=== PATIENT | female | born 1940 | race Caucasian/White ===

== ENCOUNTER 2017-08-11 15:42 | Inpatient (IN) | payer MEDICARE, MEDICAID ==
[2017-08-11 16:26] VITALS: BP 127/85
[2017-08-11] MEDS ORDERED: Magnesium Hydroxide (MOM) 30 mL UDC PO PRN (16:35)
[2017-08-11] MEDS ORDERED: Maalox 30 mL Cup PO PRN (16:35)
[2017-08-12 06:22] LABS: ALB/GLOB RATIO 1.3 (1.0-1.8); ALBUMIN 3.9 gm/dL (3.7-5.3); ALKALINE PHOSPHATASE 50 U/L (34-104); ANION GAP 11.9 (7.0-16.0); BILIRUBIN,TOTAL 0.4 mg/dL (0.3-1.0); BUN - UREA NITROGEN 16 mg/dL (7-25); CARBON DIOXIDE 25.4 mEq/L (21.0-31.0); CHLORIDE 104 mEq/L (98-107); CREATININE - SERUM 0.4 mg/dL (0.6-1.2); GLUCOSE 114 mg/dL (70-105); POTASSIUM SERUM 3.3 mEq/L (3.5-5.1); SGOT 24 U/L (13-39); SGPT/ALT 19 U/L (7-52); SODIUM SERUM 138 mEq/L (136-145)
[2017-08-12 06:24] LABS: % BASOPHILS 0.6 % (0.0-2.0); % EOSINOPHILS 1.3 % (0.0-5.0); % LYMPHOCYTES 18.4 % (20.0-50.0); % MONOCYTES 9.2 % (2.0-10.0); % NEUTROPHILS 70.5 % (40.0-80.0); BASOPHILE ABSOLUTE 0.1 Th/cumm (0-0.2); EOSINOPHILE ABSOLUTE 0.1 Th/cmm (0.1-0.4); HEMATOCRIT 37.3 % (41.0-60); HEMOGLOBIN 12.8 gm/dL (12-16); LYMPHOCYTE ABSOLUTE 1.6 Th/cmm (1.5-3.0); MEAN CELL VOLUME 87.4 fl (81-100); MEAN CORPUSCULAR HGB CONC 34.3 pg (28.0-36.0); MEAN PLATELET VOLUME 8.7 fl; MONOCYTE ABSOLUTE 0.8 Th/cmm (0.3-1.0); NEUTROPHILE ABSOLUTE 5.9 Th/cmm (1.8-8.0); PLATELET COUNT 280 Th/cmm (150-400); RED BLOOD COUNT 4.27 Mil/cmm (3.80-5.20); RED CELL DISTRIBUTION WIDTH 13.9 % (11.5-20.0); WHITE BLOOD COUNT 8.5 Th/cmm (4.8-10.8)
--- NOTE | 2017-08-12 08:47 | Diagnostic Imaging Report ---
Portable chest x-ray HISTORY: Cough Heart size is normal. After scarring calcination seen in the aorta. No acute focal pulmonary processes. Surgical changes noted in the cervical spine. IMPRESSION: 1. No acute abnormalities 2. Atherosclerotic vascular changes
[2017-08-12] MEDS: Multivitamin Tab PO SCH (09:10)
[2017-08-12] MEDS: Escitalopram Oxalate 5 mg Tab PO SCH (09:10)
--- NOTE | 2017-08-13 01:50 | Psychosocial Evaluation ---
DATE OF SERVICE: PSYCHIATRIC INITIAL EVALUATION AND MENTAL STATUS EXAM THE PATIENT'S AGE: 76. SEX: Female. PHYSICIAN: Dr. Thompson. CHIEF COMPLAINT: Agitation and irritability. HISTORY OF PRESENT ILLNESS: The patient is a 76-year-old female, who was admitted to the hospital because of confusion and increased agitation. The patient has been confused and has been in irritable mood. The patient also has been wandering in the streets and unable to care for herself according to 5150 hold that was written in [facility]. Also, the patient has been taking off her clothes. She has diagnosis of dementia. The patient also has been restless and has been easily agitated. PAST PSYCHIATRIC HISTORY: The patient has history of what seems to be dementia. PAST MEDICAL HISTORY: The patient has no major medical issues. SOCIAL HISTORY: The patient said that she lives by herself. She said that her 5 years ago and that she has 2 daughters. The patient denies any alcohol or any street drug use. ALLERGIES: No known allergies. MENTAL STATUS EXAMINATION: The patient appears older than stated age. Disheveled. Confused. Preoccupied. Thought processes are circumstantial with occasional flight of ideas. The patient denies any auditory or visual hallucinations, but seems to be preoccupied and responding. The patient is alert and oriented to the situation, but not time or place. Impaired immediate and recent memory, but intact remote memory and she did remember her date. Poor insight and poor judgment. ASSESSMENT: PRIMARY DIAGNOSES: Depressive mood disorder, severe, with psychotic feature and unspecified psychosis. SECONDARY DIAGNOSIS: Dementia. TREATMENT PLAN: We will continue to monitor the patient's behavior and condition closely. We will start individual as well as milieu psychotherapy. We will monitor psychotropic medications and start the patient on Lexapro and maybe we will add Aricept for help with her memory. ESTIMATED LENGTH OF STAY: 5-7 days. THE PATIENT'S STRENGTHS AND WEAKNESSES: The patient's strength is not clear at this time. Weaknesses is ineffective coping and her depression. AFTER DISCHARGE PLAN: The patient might need placement and outpatient treatment and followup will continue. JOB# [id number]
[2017-08-13] MEDS: Escitalopram Oxalate 5 mg Tab PO SCH (09:43)
[2017-08-13] MEDS: Multivitamin Tab PO SCH (09:43)
[2017-08-13] MEDS ORDERED: APAP/Oxycodone 5/325mg Oral Tab PO PRN (21:40)
--- NOTE | 2017-08-14 04:24 | Progress Notes ---
DATE: 08/13/2017 SUBJECTIVE: Chart reviewed and the patient interviewed. Also discussed the patient's condition with the staff and reviewed records and labs. The patient is guarded and depressed. The patient is suspicious and paranoid. The patient also is still confused, but today she is not taking off her clothes like the day before. She is also easier to redirect. ASSESSMENT: The patient seems to be less agitated, but depressed. TREATMENT PLAN: The patient started on Lexapro 5 mg every day yesterday. We will continue same dose. Also, continue to monitor her behavior and continue to follow up. JOB# [id number]
[2017-08-14] MEDS: Levothyroxine 0.1 Mg Tab PO SCH (06:30)
[2017-08-14] MEDS ORDERED: CIT PO SCH (09:00)
[2017-08-14] MEDS ORDERED: CALCIUM CARB PO SCH (09:00)
[2017-08-14] MEDS ORDERED: MAGNESIUM OX PO SCH (09:00)
[2017-08-14] MEDS: Atenolol 100mg Tab PO SCH (09:36)
[2017-08-14] MEDS: Multivitamin Tab PO SCH (09:37)
[2017-08-14] MEDS: Escitalopram Oxalate 5 mg Tab PO SCH (09:37)
--- NOTE | 2017-08-14 19:05 | History & Physical ---
ADMIT DATE: 08/11/2017 REASON FOR ADMISSION: Agitation and behavioral disturbance. HISTORY OF PRESENT ILLNESS: A 76-year-old female with past medical history significant for dementia, who presents after initially being treated at [facility]. There she was evaluated by medical doctors and psychiatrist. She was medically cleared and sent for further psychiatric evaluation because of disorganized thoughts and confusion. The patient is sitting in bed. She is awake, able to answer questions, but disoriented to time, person, and place. Denies any medical complaints. PAST MEDICAL HISTORY: The patient has history of hypertension, hypothyroidism, chronic back pain, degenerative joint disease, dementia. HOME MEDICATIONS: Include Namenda, multivitamin, Percocet, Desyrel, Norvasc, atenolol, baclofen, vitamin D, Aricept, Lexapro, Synthroid, Ativan as needed. ALLERGIES: The patient has no known drug allergies. SOCIAL HISTORY: No known tobacco, alcohol, or illicit drug use. FAMILY HISTORY: Noncontributory. REVIEW OF SYSTEMS: IMMUNOLOGIC: No recurrent infection. CARDIOVASCULAR: No heart disease. The patient does have hypertension. GASTROINTESTINAL: Denies nausea, vomiting, or diarrhea. ENDOCRINE: The patient has no diabetes. She does have thyroid disorder. NEUROLOGIC: No seizure or stroke. HEMATOLOGIC: No bleeding or clotting disorder. PHYSICAL EXAMINATION: GENERAL: The patient is awake, alert, in no acute distress. VITAL SIGNS: Temperature 97.0, pulse 89, respirations 19, blood pressure 113/65. HEENT: Pupils equally round. Anicteric sclerae. NECK: Supple. No JVD, mass, or bruit. LUNGS: Clear to auscultation. HEART: S1, S2. Regular rate and rhythm. ABDOMEN: Soft, distended. Positive bowel sounds. EXTREMITIES: No clubbing, cyanosis, or edema. BACK: No joint deformity. Rest of the examination done by PCP. NEUROLOGIC: Cranial nerves ____. Motor strength 5/5 in all extremities. ____. No motor or sensory deficit. IMPRESSION: 1. Dementia. 2. Hypertension. 3. Hypothyroidism. 4. Chronic back pain. PLAN: Admit to Geropsych Unit. The patient is to continue her home medications. We will continue to monitor the patient's blood pressure and other vitals. She is medically cleared to participate in activity. We will request physical therapy evaluation to assess the patient's ambulation. YUN: 08/14/2017 14:00 JOB# [id number]
--- NOTE | 2017-08-15 03:21 | Progress Notes ---
DATE: SUBJECTIVE: Chart reviewed and the patient interviewed. Also discussed the patient's condition with the staff and reviewed records and labs. The patient continued to be in a depressed mood. She also still has sad affect. She also is still confused and needs redirections. The patient also still wants to be left alone, but at the same time, decreased behavioral issues and the patient is not taking off her clothes like she was before, but she is still restless and guarded. She continues to need redirections and is easier to redirect her. ASSESSMENT: The patient is still depressed. TREATMENT PLAN: Continue monitoring her behavior and her condition closely. Also, the patient started on Lexapro 5 mg every day with no side effects. Continue same dose and will continue to follow up. JOB# [id number]
[2017-08-15] MEDS: Levothyroxine 0.1 Mg Tab PO SCH (06:31)
[2017-08-15 08:03] LABS: ANION GAP 9.9 (7.0-16.0); BUN - UREA NITROGEN 18 mg/dL (7-25); CALCIUM SERUM 8.7 mg/dL (8.6-10.3); CARBON DIOXIDE 28.5 mEq/L (21.0-31.0); CHLORIDE 104 mEq/L (98-107); CREATININE - SERUM 0.5 mg/dL (0.6-1.2); GLUCOSE 108 mg/dL (70-105); POTASSIUM SERUM 3.4 mEq/L (3.5-5.1); SODIUM SERUM 139 mEq/L (136-145)
[2017-08-15] MEDS: Atenolol 100mg Tab PO SCH (08:15)
[2017-08-15] MEDS: Multivitamin Tab PO SCH (08:15)
[2017-08-15] MEDS: Escitalopram Oxalate 5 mg Tab PO SCH (08:15)
[2017-08-16] MEDS: Levothyroxine 0.1 Mg Tab PO SCH (06:30)
[2017-08-16] MEDS: Escitalopram Oxalate 5 mg Tab PO SCH (08:12)
[2017-08-16] MEDS: Atenolol 100mg Tab PO SCH (08:13)
[2017-08-16] MEDS: Multivitamin Tab PO SCH (08:14)
--- NOTE | 2017-08-16 08:53 | Progress Notes ---
DATE: 08/15/2017 SUBJECTIVE: Chart reviewed and the patient interviewed. Also discussed the patient's condition with the staff and reviewed records and labs. The patient is still withdrawn and is still in a depressed mood. The patient also with sad affect. The patient also is guarded and interacting minimally with others. Otherwise, the patient continued to comply with taking Lexapro in a dose of 5 mg everyday with no side effects. The patient still has episodes of feeling restless. ASSESSMENT: The patient is still depressed. TREATMENT PLAN: Continue monitoring her behavior and her condition closely. Also, continue Lexapro in a dose of 5 mg every day and we will continue to monitor her condition and her behavior closely. [facility]# [id number]
--- NOTE | 2017-08-16 19:14 | Progress Notes ---
DATE: 08/16/2017 SUBJECTIVE: Chart reviewed and the patient interviewed. Also discussed the patient's condition with the staff and reviewed records and labs. The patient is still withdrawn and is still in a depressed mood. The patient also still has sad affect. The patient also is still interacting minimally with others. She also is still unable to provide any safe plan for self-care. The patient also wants to be left alone and does not want to talk much to others. At the same time, the patient is started on Lexapro 5 mg every day with no side effects. ASSESSMENT: The patient is still depressed and is still high risk suicide. TREATMENT PLAN: Continue to monitor her behavior and her condition closely. Also, continue Lexapro 5 mg every day and continue to follow up closely. [facility]# [id number]
--- NOTE | 2017-08-16 23:07 | General Progress Note ---
Subjective - Review of Systems Service Date: 08/16/17 Subjective: resting comfortably no distress Objective - Results Result Diagrams: 08/12/17 05:50 08/15/17 07:00 Recent Labs: Laboratory Last Values WBC 8.5 Th/cmm (4.8-10.8) 08/12/17 05:50 RBC 4.27 Mil/cmm (3.80-5.20) 08/12/17 05:50 Hgb 12.8 gm/dL (12-16) 08/12/17 05:50 Hct 37.3 % (41.0-60) L 08/12/17 05:50 MCV 87.4 fl (81-100) 08/12/17 05:50 MCH 30.0 pg (27.0-31.0) 08/12/17 05:50 MCHC Differential 34.3 pg (28.0-36.0) 08/12/17 05:50 RDW 13.9 % (11.5-20.0) 08/12/17 05:50 Plt Count 280 Th/cmm (150-400) 08/12/17 05:50 MPV 8.7 fl 08/12/17 05:50 Neutrophils % 70.5 % (40.0-80.0) 08/12/17 05:50 Lymphocytes % 18.4 % (20.0-50.0) L 08/12/17 05:50 Monocytes % 9.2 % (2.0-10.0) 08/12/17 05:50 Eosinophils % 1.3 % (0.0-5.0) 08/12/17 05:50 Basophils % 0.6 % (0.0-2.0) 08/12/17 05:50 Sodium 139 mEq/L (136-145) 08/15/17 07:00 Potassium 3.4 mEq/L (3.5-5.1) L 08/15/17 07:00 Chloride 104 mEq/L (98-107) 08/15/17 07:00 Carbon Dioxide 28.5 mEq/L (21.0-31.0) 08/15/17 07:00 Anion Gap 9.9 (7.0-16.0) 08/15/17 07:00 BUN 18 mg/dL (7-25) 08/15/17 07:00 Creatinine 0.5 mg/dL (0.6-1.2) L 08/15/17 07:00 Est GFR ( Amer) TNP 08/15/17 07:00 Est GFR (Non-Af Amer) TNP 08/15/17 07:00 BUN/Creatinine Ratio 36.0 08/15/17 07:00 Glucose 108 mg/dL (70-105) H 08/15/17 07:00 POC Glucose 132 MG/DL (70 - 105) H 08/11/17 16:30 Calcium 8.7 mg/dL (8.6-10.3) 08/15/17 07:00 Total Bilirubin 0.4 mg/dL (0.3-1.0) 08/12/17 05:50 AST 24 U/L (13-39) 08/12/17 05:50 ALT 19 U/L (7-52) 08/12/17 05:50 Alkaline Phosphatase 50 U/L (34-104) 08/12/17 05:50 Total Protein 7.0 gm/dL (6.0-8.3) 08/12/17 05:50 Albumin 3.9 gm/dL (3.7-5.3) 08/12/17 05:50 Globulin 3.1 gm/dL 08/12/17 05:50 Albumin/Globulin Ratio 1.3 (1.0-1.8) 08/12/17 05:50 - Physical Exam Vitals and I&O: Vital Signs Temp 97.6 F 08/16/17 20:43 Pulse 73 08/16/17 20:43 Resp 19 08/16/17 20:43 BP 111/58 08/16/17 20:43 Pulse Ox 96 08/16/17 20:43 Intake & Output 08/16/17 08/16/17 08/17/17 06:59 18:59 06:59 Intake Total 900 240 Output Total 2 Balance 900 238 Intake: Oral 900 240 Output: Stool 1 Urine/Stool Mix 1 Other: # Voids 4 1 # Bowel Movements 1 Active Medications: Current Medications Acetaminophen (Tylenol) 650 mg PO Q4HR PRN PRN Reason: Mild Pain / Temp above 100 Stop: 10/10/17 16:34 Last Admin: 08/12/17 20:09 Dose: 650 mg Al Hydrox/Mg Hydrox/Simethicone (Maalox) 30 ml PO Q4HR PRN PRN Reason: GI DISTRESS Stop: 10/10/17 16:34 Amlodipine Besylate (Norvasc) 5 mg PO DAILY [facility] Stop: 10/13/17 08:59 Last Admin: 08/16/17 08:12 Dose: 5 mg Atenolol (Tenormin) 100 mg PO DAILY [facility] Stop: 10/13/17 08:59 Last Admin: 08/16/17 08:13 Dose: 100 mg Baclofen (Lioresal) 20 mg PO TID PRN PRN Reason: Spasms Stop: 10/13/17 08:59 Last Admin: 08/16/17 08:11 Dose: 20 mg Cholecalciferol (Vitamin D3) 1,000 iu PO DAILY [facility] Stop: 10/13/17 08:59 Last Admin: 08/16/17 08:13 Dose: 1,000 iu Donepezil HCl (Aricept) 10 mg PO HS [facility] Stop: 10/13/17 20:59 Last Admin: 08/16/17 20:33 Dose: 10 mg Escitalopram Oxalate (Lexapro) 5 mg PO DAILY [facility]; Protocol Stop: 10/11/17 08:59 Last Admin: 08/16/17 08:12 Dose: 5 mg Levothyroxine Sodium (Synthroid) 0.1 mg PO QDAC [facility] Stop: 10/13/17 07:29 Last Admin: 08/16/17 06:30 Dose: 0.1 mg Lorazepam (Ativan) 0.5 mg PO Q4HR PRN; Protocol PRN Reason: Agitation Stop: 09/10/17 16:34 Last Admin: 08/13/17 20:03 Dose: 0.5 mg Magnesium Hydroxide (Milk Of Magnesia) 30 ml PO HS PRN PRN Reason: Constipation Memantine (Namenda) 5 mg PO BID [facility] Stop: 10/13/17 08:59 Last Admin: 08/16/17 16:19 Dose: 5 mg Multivitamins/Vitamin C (Theragran) 1 tab PO DAILY [facility] Stop: 10/11/17 08:59 Last Admin: 08/16/17 08:14 Dose: 1 tab Oxycodone/Acetaminophen (Percocet 5/325mg Oral Tab) 1 tab PO Q6H PRN PRN Reason: Pain (Moderate) Stop: 10/12/17 21:39 Trazodone HCl (Desyrel) 75 mg PO HS [facility]; Protocol Stop: 10/11/17 20:59 Last Admin: 08/16/17 20:33 Dose: 75 mg Zolpidem Tartrate (Ambien) 5 mg PO HS PRN PRN Reason: Insomnia Stop: 10/10/17 16:34 Last Admin: 08/14/17 20:12 Dose: 5 mg General: No acute distress HEENT: Atraumatic Neck: Supple, JVD Cardiovascular: Regular rate, Normal S1, Normal S2 Lungs: Clear to auscultation Abdomen: Bowel sounds, Soft Assessment/Plan - Assessment Assessment: Dementia HTN Hypothyroidism - Plan Plan: cont current treatment Nutritional Asmnt/Malnutr-PDOC - Dietary Evaluation Malnutrition Findings (Please click <Entered> for more info): Nutritional Asmnt/Malnutrition Start: 08/15/17 14: 36 Text: Status: Complete Freq: Protocol: Document 08/15/17 14:36 JAELYN (Rec: 08/15/17 14:43 [email or web address]) Nutritional Asmnt/Malnutrition Patient General Information Nutritional Screening Moderate Risk Diagnosis psychosis Pertinent Medical Hx/Surgical Hx HTn, hypothyroidism, chronic back pain, DJD, dementia Subjective Information Pt seen sitting up in bed at time of visit, LEATHER STRETCHER helped to set up lunch tray. Pt reported good appetite. Per EMR, PO intake 75-100% of meals. Current Diet Order/ Nutrition Support regular Pertinent Medications vit D3, synthorid, theragran Pertinent Labs 08/15 K 3.4, Cr 0.5, glucose 108 Nutritional Hx/Data Height 1.52 m Height (Calculated Centimeters) 152.4 Current Weight (lbs) 48.081 kg Weight (Calculated Kilograms) 48.1 Weight (Calculated Grams) 39370.8 [place] Body Weight 100 Body Mass Index (BMI) 20.7 Weight Status Approriate GI Symptoms GI Symptoms None Last BM 08/13 Difficult in: None Skin Integrity/Comment: intact Current %PO Good (75-100%) Estimated Nutritional Goals BEE in Kcals: Using Current wt Calories/Kcals/Kg 25-30 Kcals Calculated 6736-1738 Protein: Using Current wt Protein g/k Protein Calculated 48 Fluid: ml 1200-1440ml (1ml/kcal) Nutritional Problem No current Nutrition Prob Problem N/A Malnutrition Alert Is there a minimum of two criteria No selected? Query Text:Check all the applicable criteria. A minimum of two criteria are recommended for diagnosis of either severe or non-severe malnutrition. Malnutrition Related to Morbid Obesity Malnutrition related to morbid obesity No Intervention/Recommendation Comments 1. Continue with regular diet as ordered. 2. Monitor PO intake, wt, labs and skin integrity 3. F/U as low risk in 7 days, 08/21 Expected Outcomes/Goals Expected Outcomes/Goals 1. PO intake to meet at least 75% of nutritional needs. 2. Wt stability, skin to remain intact, labs to approach WNL.
[2017-08-17] MEDS: Levothyroxine 0.1 Mg Tab PO SCH (06:31)
[2017-08-17] MEDS: Escitalopram Oxalate 5 mg Tab PO SCH (08:56)
[2017-08-17] MEDS: Multivitamin Tab PO SCH (08:56)
[2017-08-17] MEDS: Atenolol 100mg Tab PO SCH (09:00)
--- NOTE | 2017-08-17 15:22 | General Progress Note ---
Subjective - Review of Systems Service Date: 08/17/17 Subjective: resting comfortably no distress Objective - Results Result Diagrams: 08/12/17 05:50 08/15/17 07:00 Recent Labs: Laboratory Last Values WBC 8.5 Th/cmm (4.8-10.8) 08/12/17 05:50 RBC 4.27 Mil/cmm (3.80-5.20) 08/12/17 05:50 Hgb 12.8 gm/dL (12-16) 08/12/17 05:50 Hct 37.3 % (41.0-60) L 08/12/17 05:50 MCV 87.4 fl (81-100) 08/12/17 05:50 MCH 30.0 pg (27.0-31.0) 08/12/17 05:50 MCHC Differential 34.3 pg (28.0-36.0) 08/12/17 05:50 RDW 13.9 % (11.5-20.0) 08/12/17 05:50 Plt Count 280 Th/cmm (150-400) 08/12/17 05:50 MPV 8.7 fl 08/12/17 05:50 Neutrophils % 70.5 % (40.0-80.0) 08/12/17 05:50 Lymphocytes % 18.4 % (20.0-50.0) L 08/12/17 05:50 Monocytes % 9.2 % (2.0-10.0) 08/12/17 05:50 Eosinophils % 1.3 % (0.0-5.0) 08/12/17 05:50 Basophils % 0.6 % (0.0-2.0) 08/12/17 05:50 Sodium 139 mEq/L (136-145) 08/15/17 07:00 Potassium 3.4 mEq/L (3.5-5.1) L 08/15/17 07:00 Chloride 104 mEq/L (98-107) 08/15/17 07:00 Carbon Dioxide 28.5 mEq/L (21.0-31.0) 08/15/17 07:00 Anion Gap 9.9 (7.0-16.0) 08/15/17 07:00 BUN 18 mg/dL (7-25) 08/15/17 07:00 Creatinine 0.5 mg/dL (0.6-1.2) L 08/15/17 07:00 Est GFR ( Amer) TNP 08/15/17 07:00 Est GFR (Non-Af Amer) TNP 08/15/17 07:00 BUN/Creatinine Ratio 36.0 08/15/17 07:00 Glucose 108 mg/dL (70-105) H 08/15/17 07:00 POC Glucose 132 MG/DL (70 - 105) H 08/11/17 16:30 Calcium 8.7 mg/dL (8.6-10.3) 08/15/17 07:00 Total Bilirubin 0.4 mg/dL (0.3-1.0) 08/12/17 05:50 AST 24 U/L (13-39) 08/12/17 05:50 ALT 19 U/L (7-52) 08/12/17 05:50 Alkaline Phosphatase 50 U/L (34-104) 08/12/17 05:50 Total Protein 7.0 gm/dL (6.0-8.3) 08/12/17 05:50 Albumin 3.9 gm/dL (3.7-5.3) 08/12/17 05:50 Globulin 3.1 gm/dL 08/12/17 05:50 Albumin/Globulin Ratio 1.3 (1.0-1.8) 08/12/17 05:50 - Physical Exam Vitals and I&O: Vital Signs Temp 98.8 F 08/17/17 06:26 Pulse 78 08/17/17 08:57 Resp 20 08/17/17 06:26 BP 114/68 08/17/17 08:57 Pulse Ox 97 08/17/17 06:26 Intake & Output 08/16/17 08/17/17 08/17/17 18:59 06:59 18:59 Intake Total 900 480 Output Total 3 Balance 900 477 Intake: Oral 900 480 Output: Stool 1 Urine/Stool Mix 2 Other: # Voids 4 1 # Bowel Movements 1 Active Medications: Current Medications Acetaminophen (Tylenol) 650 mg PO Q4HR PRN PRN Reason: Mild Pain / Temp above 100 Stop: 10/10/17 16:34 Last Admin: 08/12/17 20:09 Dose: 650 mg Al Hydrox/Mg Hydrox/Simethicone (Maalox) 30 ml PO Q4HR PRN PRN Reason: GI DISTRESS Stop: 10/10/17 16:34 Amlodipine Besylate (Norvasc) 5 mg PO DAILY [facility] Stop: 10/13/17 08:59 Last Admin: 08/17/17 08:57 Dose: 5 mg Atenolol (Tenormin) 100 mg PO DAILY [facility] Stop: 10/13/17 08:59 Last Admin: 08/17/17 09:00 Dose: 100 mg Baclofen (Lioresal) 20 mg PO TID PRN PRN Reason: Spasms Stop: 10/13/17 08:59 Last Admin: 08/16/17 08:11 Dose: 20 mg Cholecalciferol (Vitamin D3) 1,000 iu PO DAILY [facility] Stop: 10/13/17 08:59 Last Admin: 08/17/17 08:56 Dose: 1,000 iu Donepezil HCl (Aricept) 10 mg PO HS [facility] Stop: 10/13/17 20:59 Last Admin: 08/16/17 20:33 Dose: 10 mg Escitalopram Oxalate (Lexapro) 5 mg PO DAILY [facility]; Protocol Stop: 10/11/17 08:59 Last Admin: 08/17/17 08:56 Dose: 5 mg Levothyroxine Sodium (Synthroid) 0.1 mg PO QDAC [facility] Stop: 10/13/17 07:29 Last Admin: 08/17/17 06:31 Dose: 0.1 mg Lorazepam (Ativan) 0.5 mg PO Q4HR PRN; Protocol PRN Reason: Agitation Stop: 09/10/17 16:34 Last Admin: 08/13/17 20:03 Dose: 0.5 mg Magnesium Hydroxide (Milk Of Magnesia) 30 ml PO HS PRN PRN Reason: Constipation Memantine (Namenda) 5 mg PO BID [facility] Stop: 10/13/17 08:59 Last Admin: 08/17/17 08:56 Dose: 5 mg Multivitamins/Vitamin C (Theragran) 1 tab PO DAILY [facility] Stop: 10/11/17 08:59 Last Admin: 08/17/17 08:56 Dose: 1 tab Oxycodone/Acetaminophen (Percocet 5/325mg Oral Tab) 1 tab PO Q6H PRN PRN Reason: Pain (Moderate) Stop: 10/12/17 21:39 Trazodone HCl (Desyrel) 75 mg PO HS [facility]; Protocol Stop: 10/11/17 20:59 Last Admin: 08/16/17 20:33 Dose: 75 mg Zolpidem Tartrate (Ambien) 5 mg PO HS PRN PRN Reason: Insomnia Stop: 10/10/17 16:34 Last Admin: 08/14/17 20:12 Dose: 5 mg General: No acute distress HEENT: Atraumatic Neck: Supple, JVD Cardiovascular: Regular rate, Normal S1, Normal S2 Lungs: Clear to auscultation Abdomen: Bowel sounds, Soft Assessment/Plan - Assessment Assessment: Dementia HTN Hypothyroidism - Plan Plan: cont current treatment Nutritional Asmnt/Malnutr-PDOC - Dietary Evaluation Malnutrition Findings (Please click <Entered> for more info): Nutritional Asmnt/Malnutrition Start: 08/15/17 14: 36 Text: Status: Complete Freq: Protocol: Document 08/15/17 14:36 [email or web address] (Rec: 08/15/17 14:43 [email or web address] [email or web address]) Nutritional Asmnt/Malnutrition Patient General Information Nutritional Screening Moderate Risk Diagnosis psychosis Pertinent Medical Hx/Surgical Hx HTn, hypothyroidism, chronic back pain, DJD, dementia Subjective Information Pt seen sitting up in bed at time of visit, PRODUCTION SAMPLER helped to set up lunch tray. Pt reported good appetite. Per EMR, PO intake 75-100% of meals. Current Diet Order/ Nutrition Support regular Pertinent Medications vit D3, synthorid, theragran Pertinent Labs 08/15 K 3.4, Cr 0.5, glucose 108 Nutritional Hx/Data Height 1.52 m Height (Calculated Centimeters) 152.4 Current Weight (lbs) 48.081 kg Weight (Calculated Kilograms) 48.1 Weight (Calculated Grams) 98936.8 [place] Body Weight 100 Body Mass Index (BMI) 20.7 Weight Status Approriate GI Symptoms GI Symptoms None Last BM 08/13 Difficult in: None Skin Integrity/Comment: intact Current %PO Good (75-100%) Estimated Nutritional Goals BEE in Kcals: Using Current wt Calories/Kcals/Kg 25-30 Kcals Calculated 8456-9065 Protein: Using Current wt Protein g/k Protein Calculated 48 Fluid: ml 1200-1440ml (1ml/kcal) Nutritional Problem No current Nutrition Prob Problem N/A Malnutrition Alert Is there a minimum of two criteria No selected? Query Text:Check all the applicable criteria. A minimum of two criteria are recommended for diagnosis of either severe or non-severe malnutrition. Malnutrition Related to Morbid Obesity Malnutrition related to morbid obesity No Intervention/Recommendation Comments 1. Continue with regular diet as ordered. 2. Monitor PO intake, wt, labs and skin integrity 3. F/U as low risk in 7 days, 08/21 Expected Outcomes/Goals Expected Outcomes/Goals 1. PO intake to meet at least 75% of nutritional needs. 2. Wt stability, skin to remain intact, labs to approach WNL.
[2017-08-18] MEDS: Levothyroxine 0.1 Mg Tab PO SCH (06:57)
[2017-08-18] MEDS: Atenolol 100mg Tab PO SCH (09:48)
[2017-08-18] MEDS: Escitalopram Oxalate 5 mg Tab PO SCH (09:50)
[2017-08-18] MEDS: Multivitamin Tab PO SCH (09:51)
--- NOTE | 2017-08-19 01:44 | Progress Notes ---
DATE: 08/17/2017 SUBJECTIVE: Chart reviewed and the patient interviewed. We also discussed the patient's condition with the staff and reviewed records and labs. The patient continued to be anxious and in irritable mood and she has been confused. The patient is oriented only to herself. The patient also needs lots of redirections. She is withdrawn and spending most of the time in her room. She also is still depressed, minimum interaction with others. Otherwise, the patient is easy to redirect. ASSESSMENT: The patient is still confused and still depressed. TREATMENT PLAN: Continue to monitor her behavior and her condition closely. Also, continue to work on her impulse control, her irritability and we will continue to follow up. JOB# [id number]
--- NOTE | 2017-08-19 03:00 | Progress Notes ---
DATE: 08/18/[address] Thompson. SUBJECTIVE: Case was discussed with staff of the patient, reviewed records. This is a 76-year-old female who was admitted on 08/11/2017. She is confused, agitated, irritable, wandering in the streets, unable to care for herself, came from [facility] and taken off her clothes. She is demented, confused, restless, and easily agitated. She was a poor historian. The family was living with herself. Dr. Thompson had her on Aricept 10 mg at bedtime, Lexapro 5 mg daily, Namenda 5 mg twice a day, and trazodone 75 mg at bedtime. She continues to be confused, unpredictable, impulsive, and needing redirection. She continues to be unable to make a safe plan for self-care. She continues to have poor insight. No side effects with the medication, no sedation, and no nausea. We will continue to work with the patient in group therapy, milieu therapy, and adjust medications as needed. JOB# [id number]
[2017-08-19] MEDS: Levothyroxine 0.1 Mg Tab PO SCH (06:49)
[2017-08-19] MEDS: Atenolol 100mg Tab PO SCH (08:19)
[2017-08-19] MEDS: Multivitamin Tab PO SCH (08:19)
[2017-08-19] MEDS: Escitalopram Oxalate 5 mg Tab PO SCH (08:19)
--- NOTE | 2017-08-20 00:24 | Progress Notes ---
DATE: 08/19/[address] Thompson. Case was discussed with staff of the patient, reviewed records. The patient continues to be anxious, irritable, confused, unable to make safe plan for self-care, depressed, unpredictable, impulsive, needing redirection. ____ getting upset easily. She has been compliant with the medication with no side effects, no sedation, no nausea. I will be increasing her Lexapro dose to 10 mg daily and we will continue to work with the patient in group therapy, milieu therapy, and adjust the medications as needed. JOB# [id number]
[2017-08-20] MEDS: Levothyroxine 0.1 Mg Tab PO SCH (06:41)
[2017-08-20] MEDS: Atenolol 100mg Tab PO SCH (09:33)
[2017-08-20] MEDS: Multivitamin Tab PO SCH (09:34)
[2017-08-21] MEDS: Levothyroxine 0.1 Mg Tab PO SCH (06:47)
[2017-08-21] MEDS: Multivitamin Tab PO SCH (09:20)
--- NOTE | 2017-08-21 10:04 | Progress Notes ---
DATE: 08/20/2017 SUBJECTIVE: Chart reviewed and the patient interviewed. Also, discussed the patient's condition with the staff and reviewed records and labs. The patient continued to be guarded and is depressed and withdrawn. The patient also is interacting minimally with others. The patient also denies any intention to harm herself or others, but she is still easily agitated and wants to be left alone. The patient is compliant with taking her medications with no side effect of medications. ASSESSMENT: The patient is still depressed and still needs lots of redirections. TREATMENT PLAN: Continue to monitor her behavior and her condition closely. Also, continue to work on adjusting psychotropic medications and follow up closely. JOB# [id number]
[2017-08-21] MEDS: Atenolol 100mg Tab PO SCH (12:20)
[2017-08-22] MEDS: Levothyroxine 0.1 Mg Tab PO SCH (06:56)
[2017-08-22] MEDS: Atenolol 100mg Tab PO SCH (08:51)
[2017-08-22] MEDS: Multivitamin Tab PO SCH (09:04)
--- NOTE | 2017-08-22 09:33 | Progress Notes ---
DATE: 08/21/2017 SUBJECTIVE: Chart reviewed and the patient interviewed. Also discussed the patient's condition with the staff and reviewed records and labs. The patient continued to be forgetful and she is still withdrawn. The patient also is still in a depressed mood. The patient also needs a lot of directions because of her forgetfulness. The patient also is still suspicious and is still paranoid. Otherwise, the patient is compliant with taking her medications with no side effect of medications. ASSESSMENT: The patient is still depressed and withdrawn. TREATMENT PLAN: We will continue to monitor her behavior and her condition closely. Also, we will continue Lexapro and trazodone and we will increase Namenda to 10 mg twice a day and will continue to follow up closely. [facility]# [id number]
[2017-08-23] MEDS: Levothyroxine 0.1 Mg Tab PO SCH (06:31)
[2017-08-23] MEDS: Multivitamin Tab PO SCH (09:12)
[2017-08-23] MEDS: Atenolol 100mg Tab PO SCH (09:14)
--- NOTE | 2017-08-23 11:52 | Internal Medicine Prog Note ---
Internal Medicine Subjective - Subjective Service Date: 08/23/17 Patient seen and examined:: with staff Patient is:: awake, in bed Per staff patient has:: no adverse event Internal Medicine Objective - Results Result Diagrams: 08/12/17 05:50 08/15/17 07:00 Recent Labs: Laboratory Last Values WBC 8.5 Th/cmm (4.8-10.8) 08/12/17 05:50 RBC 4.27 Mil/cmm (3.80-5.20) 08/12/17 05:50 Hgb 12.8 gm/dL (12-16) 08/12/17 05:50 Hct 37.3 % (41.0-60) L 08/12/17 05:50 MCV 87.4 fl (81-100) 08/12/17 05:50 MCH 30.0 pg (27.0-31.0) 08/12/17 05:50 MCHC Differential 34.3 pg (28.0-36.0) 08/12/17 05:50 RDW 13.9 % (11.5-20.0) 08/12/17 05:50 Plt Count 280 Th/cmm (150-400) 08/12/17 05:50 MPV 8.7 fl 08/12/17 05:50 Neutrophils % 70.5 % (40.0-80.0) 08/12/17 05:50 Lymphocytes % 18.4 % (20.0-50.0) L 08/12/17 05:50 Monocytes % 9.2 % (2.0-10.0) 08/12/17 05:50 Eosinophils % 1.3 % (0.0-5.0) 08/12/17 05:50 Basophils % 0.6 % (0.0-2.0) 08/12/17 05:50 Sodium 139 mEq/L (136-145) 08/15/17 07:00 Potassium 3.4 mEq/L (3.5-5.1) L 08/15/17 07:00 Chloride 104 mEq/L (98-107) 08/15/17 07:00 Carbon Dioxide 28.5 mEq/L (21.0-31.0) 08/15/17 07:00 Anion Gap 9.9 (7.0-16.0) 08/15/17 07:00 BUN 18 mg/dL (7-25) 08/15/17 07:00 Creatinine 0.5 mg/dL (0.6-1.2) L 08/15/17 07:00 Est GFR ( Amer) TNP 08/15/17 07:00 Est GFR (Non-Af Amer) TNP 08/15/17 07:00 BUN/Creatinine Ratio 36.0 08/15/17 07:00 Glucose 108 mg/dL (70-105) H 08/15/17 07:00 POC Glucose 132 MG/DL (70 - 105) H 08/11/17 16:30 Calcium 8.7 mg/dL (8.6-10.3) 08/15/17 07:00 Total Bilirubin 0.4 mg/dL (0.3-1.0) 08/12/17 05:50 AST 24 U/L (13-39) 08/12/17 05:50 ALT 19 U/L (7-52) 08/12/17 05:50 Alkaline Phosphatase 50 U/L (34-104) 08/12/17 05:50 Total Protein 7.0 gm/dL (6.0-8.3) 08/12/17 05:50 Albumin 3.9 gm/dL (3.7-5.3) 08/12/17 05:50 Globulin 3.1 gm/dL 08/12/17 05:50 Albumin/Globulin Ratio 1.3 (1.0-1.8) 08/12/17 05:50 - Physical Exam Vitals and I&O: Vital Signs Temp 97.1 F 08/23/17 06:57 Pulse 64 08/23/17 09:13 Resp 19 08/23/17 06:57 BP 126/69 08/23/17 09:13 Pulse Ox 98 08/23/17 06:57 Intake & Output 08/22/17 08/23/17 08/23/17 18:59 06:59 18:59 Intake Total 1200 480 Balance 1200 480 Intake: Oral 1200 480 Other: # Voids 3 1 Active Medications: Current Medications Acetaminophen (Tylenol) 650 mg PO Q4HR PRN PRN Reason: Mild Pain / Temp above 100 Stop: 10/10/17 16:34 Last Admin: 08/12/17 20:09 Dose: 650 mg Al Hydrox/Mg Hydrox/Simethicone (Maalox) 30 ml PO Q4HR PRN PRN Reason: GI DISTRESS Stop: 10/10/17 16:34 Amlodipine Besylate (Norvasc) 5 mg PO DAILY [facility] Stop: 10/13/17 08:59 Last Admin: 08/23/17 09:13 Dose: 5 mg Atenolol (Tenormin) 100 mg PO DAILY [facility] Stop: 10/13/17 08:59 Last Admin: 08/23/17 09:14 Dose: Not Given Baclofen (Lioresal) 20 mg PO TID PRN PRN Reason: Spasms Stop: 10/13/17 08:59 Last Admin: 08/22/17 09:04 Dose: 20 mg Cholecalciferol (Vitamin D3) 1,000 iu PO DAILY [facility] Stop: 10/13/17 08:59 Last Admin: 08/23/17 09:12 Dose: 1,000 iu Donepezil HCl (Aricept) 10 mg PO HS [facility] Stop: 10/13/17 20:59 Last Admin: 08/22/17 21:44 Dose: 10 mg Escitalopram Oxalate (Lexapro) 10 mg PO DAILY [facility]; Protocol Stop: 10/19/17 08:59 Last Admin: 08/23/17 09:12 Dose: 10 mg Levothyroxine Sodium (Synthroid) 0.1 mg PO QDAC [facility] Stop: 10/13/17 07:29 Last Admin: 08/23/17 06:31 Dose: 0.1 mg Lorazepam (Ativan) 0.5 mg PO Q4HR PRN; Protocol PRN Reason: Agitation Stop: 09/10/17 16:34 Last Admin: 08/13/17 20:03 Dose: 0.5 mg Magnesium Hydroxide (Milk Of Magnesia) 30 ml PO HS PRN PRN Reason: Constipation Memantine (Namenda) 10 mg PO BID [facility] Stop: 10/20/17 08:59 Last Admin: 08/23/17 09:12 Dose: 10 mg Multivitamins/Vitamin C (Theragran) 1 tab PO DAILY [facility] Stop: 10/11/17 08:59 Last Admin: 08/23/17 09:12 Dose: 1 tab Trazodone HCl (Desyrel) 75 mg PO HS [facility]; Protocol Stop: 10/11/17 20:59 Last Admin: 08/22/17 21:44 Dose: 75 mg Zolpidem Tartrate (Ambien) 5 mg PO HS PRN PRN Reason: Insomnia Stop: 10/10/17 16:34 Last Admin: 08/21/17 20:29 Dose: 5 mg General: demented HEENT: NC/AT, PERRLA, anicteric sclerae, throat clear Neck: +2 carotid pulse wo bruit, No LAD Cardiovascular: RRR, Normal S1, Normal S2, without murmur Abdomen: non-tender, distended Neurological: no change Internal Medicine Assmt/Plan - Assessment Assessment: 1.HTN. 2.HYPOTHYROIDISIM. 3.DEMENTIA. - Plan Plan: CONTINUE ON CURRENT MEDICATION AND DIET. Nutritional Asmnt/Malnutr-PDOC - Dietary Evaluation Malnutrition Findings (Please click <Entered> for more info): Nutritional Asmnt/Malnutrition Start: 08/15/17 14: 36 Text: Status: Complete Freq: Protocol: Document 08/15/17 14:36 LCHENG (Rec: 08/15/17 14:43 JAELYN [email or web address]) Nutritional Asmnt/Malnutrition Patient General Information Nutritional Screening Moderate Risk Diagnosis psychosis Pertinent Medical Hx/Surgical Hx HTn, hypothyroidism, chronic back pain, DJD, dementia Subjective Information Pt seen sitting up in bed at time of visit, TRADE FACILITATOR helped to set up lunch tray. Pt reported good appetite. Per EMR, PO intake 75-100% of meals. Current Diet Order/ Nutrition Support regular Pertinent Medications vit D3, synthorid, theragran Pertinent Labs 08/15 K 3.4, Cr 0.5, glucose 108 Nutritional Hx/Data Height 1.52 m Height (Calculated Centimeters) 152.4 Current Weight (lbs) 48.081 kg Weight (Calculated Kilograms) 48.1 Weight (Calculated Grams) 86620.8 [place] Body Weight 100 Body Mass Index (BMI) 20.7 Weight Status Approriate GI Symptoms GI Symptoms None Last BM 08/13 Difficult in: None Skin Integrity/Comment: intact Current %PO Good (75-100%) Estimated Nutritional Goals BEE in Kcals: Using Current wt Calories/Kcals/Kg 25-30 Kcals Calculated 1357-5614 Protein: Using Current wt Protein g/k Protein Calculated 48 Fluid: ml 1200-1440ml (1ml/kcal) Nutritional Problem No current Nutrition Prob Problem N/A Malnutrition Alert Is there a minimum of two criteria No selected? Query Text:Check all the applicable criteria. A minimum of two criteria are recommended for diagnosis of either severe or non-severe malnutrition. Malnutrition Related to Morbid Obesity Malnutrition related to morbid obesity No Intervention/Recommendation Comments 1. Continue with regular diet as ordered. 2. Monitor PO intake, wt, labs and skin integrity 3. F/U as low risk in 7 days, 08/21 Expected Outcomes/Goals Expected Outcomes/Goals 1. PO intake to meet at least 75% of nutritional needs. 2. Wt stability, skin to remain intact, labs to approach WNL.
--- NOTE | 2017-08-23 18:52 | Progress Notes ---
DATE: 08/23/2017 Case was discussed with staff of the patient and reviewed records. The patient is a well-known patient. I have seen her before covering for Dr. Thompson. The patient continues to be depressed, continues to need redirection. Continues to be confused, suspicious, and paranoid. Continues to need a lots of prompting. Namenda was increased to 10 mg twice a day. No side effects to the medication, no sedation, no nausea and no extrapyramidal symptoms. We will continue to work with the patient in group therapy, milieu therapy, and adjust medications as needed. JOB# [id number]
--- NOTE | 2017-08-24 02:51 | Progress Notes ---
DATE: 08/22/2017 SUBJECTIVE: Chart reviewed and the patient interviewed. Also discussed the patient's condition with the staff and reviewed records and labs. The patient continued to be in a depressed mood. The patient also is guarded and is interacting minimally with others. The patient also is restless and still having mood swings. She also wants to be left alone. Otherwise, the patient is compliant with taking her medications with no side effects of medications. ASSESSMENT: The patient is still depressed and needs close monitoring. TREATMENT PLAN: Continue monitoring her behavior and her condition closely and continue adjusting psychotropic medications and followup. [facility]# [id number]
[2017-08-24] MEDS: Levothyroxine 0.1 Mg Tab PO SCH (06:37)
[2017-08-24] MEDS: Multivitamin Tab PO SCH (08:31)
[2017-08-24] MEDS: Atenolol 100mg Tab PO SCH (08:31)
--- NOTE | 2017-08-24 14:46 | Internal Medicine Prog Note ---
Internal Medicine Subjective - Subjective Service Date: 08/24/17 Patient seen and examined:: with staff Patient is:: awake, in bed Per staff patient has:: no adverse event Internal Medicine Objective - Results Result Diagrams: 08/12/17 05:50 08/15/17 07:00 Recent Labs: Laboratory Last Values WBC 8.5 Th/cmm (4.8-10.8) 08/12/17 05:50 RBC 4.27 Mil/cmm (3.80-5.20) 08/12/17 05:50 Hgb 12.8 gm/dL (12-16) 08/12/17 05:50 Hct 37.3 % (41.0-60) L 08/12/17 05:50 MCV 87.4 fl (81-100) 08/12/17 05:50 MCH 30.0 pg (27.0-31.0) 08/12/17 05:50 MCHC Differential 34.3 pg (28.0-36.0) 08/12/17 05:50 RDW 13.9 % (11.5-20.0) 08/12/17 05:50 Plt Count 280 Th/cmm (150-400) 08/12/17 05:50 MPV 8.7 fl 08/12/17 05:50 Neutrophils % 70.5 % (40.0-80.0) 08/12/17 05:50 Lymphocytes % 18.4 % (20.0-50.0) L 08/12/17 05:50 Monocytes % 9.2 % (2.0-10.0) 08/12/17 05:50 Eosinophils % 1.3 % (0.0-5.0) 08/12/17 05:50 Basophils % 0.6 % (0.0-2.0) 08/12/17 05:50 Sodium 139 mEq/L (136-145) 08/15/17 07:00 Potassium 3.4 mEq/L (3.5-5.1) L 08/15/17 07:00 Chloride 104 mEq/L (98-107) 08/15/17 07:00 Carbon Dioxide 28.5 mEq/L (21.0-31.0) 08/15/17 07:00 Anion Gap 9.9 (7.0-16.0) 08/15/17 07:00 BUN 18 mg/dL (7-25) 08/15/17 07:00 Creatinine 0.5 mg/dL (0.6-1.2) L 08/15/17 07:00 Est GFR ( Amer) TNP 08/15/17 07:00 Est GFR (Non-Af Amer) TNP 08/15/17 07:00 BUN/Creatinine Ratio 36.0 08/15/17 07:00 Glucose 108 mg/dL (70-105) H 08/15/17 07:00 POC Glucose 92 MG/DL (70 - 105) 08/23/17 20:50 Calcium 8.7 mg/dL (8.6-10.3) 08/15/17 07:00 Total Bilirubin 0.4 mg/dL (0.3-1.0) 08/12/17 05:50 AST 24 U/L (13-39) 08/12/17 05:50 ALT 19 U/L (7-52) 08/12/17 05:50 Alkaline Phosphatase 50 U/L (34-104) 08/12/17 05:50 Total Protein 7.0 gm/dL (6.0-8.3) 08/12/17 05:50 Albumin 3.9 gm/dL (3.7-5.3) 08/12/17 05:50 Globulin 3.1 gm/dL 08/12/17 05:50 Albumin/Globulin Ratio 1.3 (1.0-1.8) 08/12/17 05:50 - Physical Exam Vitals and I&O: Vital Signs Temp 97.8 F 08/24/17 06:38 Pulse 73 08/24/17 08:30 Resp 20 08/24/17 06:38 BP 114/75 08/24/17 08:30 Pulse Ox 98 08/24/17 06:38 Intake & Output 08/23/17 08/24/17 08/24/17 18:59 06:59 18:59 Intake Total 1000 120 Balance 1000 120 Intake: Oral 1000 120 Other: # Voids 3 3 # Bowel Movements 1 Active Medications: Current Medications Acetaminophen (Tylenol) 650 mg PO Q4HR PRN PRN Reason: Mild Pain / Temp above 100 Stop: 10/10/17 16:34 Last Admin: 08/12/17 20:09 Dose: 650 mg Al Hydrox/Mg Hydrox/Simethicone (Maalox) 30 ml PO Q4HR PRN PRN Reason: GI DISTRESS Stop: 10/10/17 16:34 Amlodipine Besylate (Norvasc) 5 mg PO DAILY [facility] Stop: 10/13/17 08:59 Last Admin: 08/24/17 08:30 Dose: 5 mg Atenolol (Tenormin) 100 mg PO DAILY [facility] Stop: 10/13/17 08:59 Last Admin: 08/24/17 08:31 Dose: Not Given Baclofen (Lioresal) 20 mg PO TID PRN PRN Reason: Spasms Stop: 10/13/17 08:59 Last Admin: 08/22/17 09:04 Dose: 20 mg Cholecalciferol (Vitamin D3) 1,000 iu PO DAILY [facility] Stop: 10/13/17 08:59 Last Admin: 08/24/17 08:30 Dose: 1,000 iu Donepezil HCl (Aricept) 10 mg PO HS [facility] Stop: 10/13/17 20:59 Last Admin: 08/23/17 21:12 Dose: 10 mg Escitalopram Oxalate (Lexapro) 10 mg PO DAILY [facility]; Protocol Stop: 10/19/17 08:59 Last Admin: 08/24/17 08:31 Dose: 10 mg Levothyroxine Sodium (Synthroid) 0.1 mg PO QDAC [facility] Stop: 10/13/17 07:29 Last Admin: 08/24/17 06:37 Dose: 0.1 mg Lorazepam (Ativan) 0.5 mg PO Q4HR PRN; Protocol PRN Reason: Agitation Stop: 09/10/17 16:34 Last Admin: 08/13/17 20:03 Dose: 0.5 mg Magnesium Hydroxide (Milk Of Magnesia) 30 ml PO HS PRN PRN Reason: Constipation Memantine (Namenda) 10 mg PO BID [facility] Stop: 10/20/17 08:59 Last Admin: 08/24/17 08:31 Dose: 10 mg Multivitamins/Vitamin C (Theragran) 1 tab PO DAILY [facility] Stop: 10/11/17 08:59 Last Admin: 08/24/17 08:31 Dose: 1 tab Trazodone HCl (Desyrel) 75 mg PO HS [facility]; Protocol Stop: 10/11/17 20:59 Last Admin: 08/23/17 21:12 Dose: 75 mg Zolpidem Tartrate (Ambien) 5 mg PO HS PRN PRN Reason: Insomnia Stop: 10/10/17 16:34 Last Admin: 08/21/17 20:29 Dose: 5 mg General: demented HEENT: NC/AT, PERRLA, anicteric sclerae, throat clear Neck: +2 carotid pulse wo bruit, No LAD Cardiovascular: RRR, Normal S1, Normal S2, without murmur Abdomen: non-tender, distended Neurological: no change Internal Medicine Assmt/Plan - Assessment Assessment: 1.HTN. 2.HYPOTHYROIDISIM. 3.DEMENTIA. - Plan Plan: CONTINUE ON CURRENT MEDICATION AND DIET. Nutritional Asmnt/Malnutr-PDOC - Dietary Evaluation Malnutrition Findings (Please click <Entered> for more info): Nutritional Asmnt/Malnutrition Start: 08/15/17 14: 36 Text: Status: Complete Freq: Protocol: Document 08/15/17 14:36 LCHENG (Rec: 08/15/17 14:43 LCBEENAG [email or web address]) Nutritional Asmnt/Malnutrition Patient General Information Nutritional Screening Moderate Risk Diagnosis psychosis Pertinent Medical Hx/Surgical Hx HTn, hypothyroidism, chronic back pain, DJD, dementia Subjective Information Pt seen sitting up in bed at time of visit, MENTAL HEALTH PRACTITIONER helped to set up lunch tray. Pt reported good appetite. Per EMR, PO intake 75-100% of meals. Current Diet Order/ Nutrition Support regular Pertinent Medications vit D3, synthorid, theragran Pertinent Labs 08/15 K 3.4, Cr 0.5, glucose 108 Nutritional Hx/Data Height 1.52 m Height (Calculated Centimeters) 152.4 Current Weight (lbs) 48.081 kg Weight (Calculated Kilograms) 48.1 Weight (Calculated Grams) 00639.8 [place] Body Weight 100 Body Mass Index (BMI) 20.7 Weight Status Approriate GI Symptoms GI Symptoms None Last BM 08/13 Difficult in: None Skin Integrity/Comment: intact Current %PO Good (75-100%) Estimated Nutritional Goals BEE in Kcals: Using Current wt Calories/Kcals/Kg 25-30 Kcals Calculated 7254-1108 Protein: Using Current wt Protein g/k Protein Calculated 48 Fluid: ml 1200-1440ml (1ml/kcal) Nutritional Problem No current Nutrition Prob Problem N/A Malnutrition Alert Is there a minimum of two criteria No selected? Query Text:Check all the applicable criteria. A minimum of two criteria are recommended for diagnosis of either severe or non-severe malnutrition. Malnutrition Related to Morbid Obesity Malnutrition related to morbid obesity No Intervention/Recommendation Comments 1. Continue with regular diet as ordered. 2. Monitor PO intake, wt, labs and skin integrity 3. F/U as low risk in 7 days, 08/21 Expected Outcomes/Goals Expected Outcomes/Goals 1. PO intake to meet at least 75% of nutritional needs. 2. Wt stability, skin to remain intact, labs to approach WNL.
--- NOTE | 2017-08-24 20:13 | Progress Notes ---
DATE: 08/24/2017 SUBJECTIVE: Case was discussed with staff of the patient, reviewed records. The patient continues to be confused and demented. Continues to be unable to make safe plan for self-care. Continues to be depressed, needing redirection at times paranoid, suspicious. Continues to need a lot of ____. Continues to have poor insight. She is compliant with the medication with no side effects. Medication reviewed on the records. No side effects of the medication, no sedation, no nausea. She is considered a high fall risk because of her age and she is on fall precautions and we will continue to work with the patient in group therapy, milieu therapy, and adjust the medications as needed. [facility]# [id number]
[2017-08-25] MEDS: Levothyroxine 0.1 Mg Tab PO SCH (06:39)
--- NOTE | 2017-08-25 06:55 | Progress Notes ---
DATE: SUBJECTIVE: Chart reviewed and the patient interviewed. Also discussed the patient's condition with the staff and reviewed records and labs. The patient is still confused and forgetful. The patient also is still withdrawn and interacting minimally with others. The patient also is guarded. Also, her thought processes are circumstantial and disorganized. The patient is compliant with taking her medications with no side effects of medications. ASSESSMENT: The patient is still depressed and confused. TREATMENT PLAN: Continue to monitor her behavior and her condition closely and continue to monitor psychotropic medications and followup. [facility]# [id number]
[2017-08-25] MEDS: Atenolol 100mg Tab PO SCH (08:42)
[2017-08-25] MEDS: Multivitamin Tab PO SCH (08:45)
--- NOTE | 2017-08-25 19:07 | Internal Medicine Prog Note ---
Internal Medicine Subjective - Subjective Service Date: 08/25/17 Patient seen and examined:: with staff Patient is:: awake, in bed Per staff patient has:: no adverse event Internal Medicine Objective - Results Result Diagrams: 08/12/17 05:50 08/15/17 07:00 Recent Labs: Laboratory Last Values WBC 8.5 Th/cmm (4.8-10.8) 08/12/17 05:50 RBC 4.27 Mil/cmm (3.80-5.20) 08/12/17 05:50 Hgb 12.8 gm/dL (12-16) 08/12/17 05:50 Hct 37.3 % (41.0-60) L 08/12/17 05:50 MCV 87.4 fl (81-100) 08/12/17 05:50 MCH 30.0 pg (27.0-31.0) 08/12/17 05:50 MCHC Differential 34.3 pg (28.0-36.0) 08/12/17 05:50 RDW 13.9 % (11.5-20.0) 08/12/17 05:50 Plt Count 280 Th/cmm (150-400) 08/12/17 05:50 MPV 8.7 fl 08/12/17 05:50 Neutrophils % 70.5 % (40.0-80.0) 08/12/17 05:50 Lymphocytes % 18.4 % (20.0-50.0) L 08/12/17 05:50 Monocytes % 9.2 % (2.0-10.0) 08/12/17 05:50 Eosinophils % 1.3 % (0.0-5.0) 08/12/17 05:50 Basophils % 0.6 % (0.0-2.0) 08/12/17 05:50 Sodium 139 mEq/L (136-145) 08/15/17 07:00 Potassium 3.4 mEq/L (3.5-5.1) L 08/15/17 07:00 Chloride 104 mEq/L (98-107) 08/15/17 07:00 Carbon Dioxide 28.5 mEq/L (21.0-31.0) 08/15/17 07:00 Anion Gap 9.9 (7.0-16.0) 08/15/17 07:00 BUN 18 mg/dL (7-25) 08/15/17 07:00 Creatinine 0.5 mg/dL (0.6-1.2) L 08/15/17 07:00 Est GFR ( Amer) TNP 08/15/17 07:00 Est GFR (Non-Af Amer) TNP 08/15/17 07:00 BUN/Creatinine Ratio 36.0 08/15/17 07:00 Glucose 108 mg/dL (70-105) H 08/15/17 07:00 POC Glucose 92 MG/DL (70 - 105) 08/23/17 20:50 Calcium 8.7 mg/dL (8.6-10.3) 08/15/17 07:00 Total Bilirubin 0.4 mg/dL (0.3-1.0) 08/12/17 05:50 AST 24 U/L (13-39) 08/12/17 05:50 ALT 19 U/L (7-52) 08/12/17 05:50 Alkaline Phosphatase 50 U/L (34-104) 08/12/17 05:50 Total Protein 7.0 gm/dL (6.0-8.3) 08/12/17 05:50 Albumin 3.9 gm/dL (3.7-5.3) 08/12/17 05:50 Globulin 3.1 gm/dL 08/12/17 05:50 Albumin/Globulin Ratio 1.3 (1.0-1.8) 08/12/17 05:50 - Physical Exam Vitals and I&O: Vital Signs Temp 98.1 F 08/25/17 15:05 Pulse 63 08/25/17 15:05 Resp 18 08/25/17 15:05 BP 106/53 08/25/17 15:05 Pulse Ox 96 08/25/17 15:05 Intake & Output 08/25/17 08/25/17 08/26/17 06:59 18:59 06:59 Intake Total 120 950 Balance 120 950 Intake: Oral 120 950 Other: # Voids 3 4 # Bowel Movements 0 Active Medications: Current Medications Acetaminophen (Tylenol) 650 mg PO Q4HR PRN PRN Reason: Mild Pain / Temp above 100 Stop: 10/10/17 16:34 Last Admin: 08/12/17 20:09 Dose: 650 mg Al Hydrox/Mg Hydrox/Simethicone (Maalox) 30 ml PO Q4HR PRN PRN Reason: GI DISTRESS Stop: 10/10/17 16:34 Amlodipine Besylate (Norvasc) 5 mg PO DAILY [facility] Stop: 10/13/17 08:59 Last Admin: 08/25/17 08:45 Dose: 5 mg Atenolol (Tenormin) 100 mg PO DAILY [facility] Stop: 10/13/17 08:59 Last Admin: 08/25/17 08:42 Dose: 100 mg Baclofen (Lioresal) 20 mg PO TID PRN PRN Reason: Spasms Stop: 10/13/17 08:59 Last Admin: 08/22/17 09:04 Dose: 20 mg Cholecalciferol (Vitamin D3) 1,000 iu PO DAILY [facility] Stop: 10/13/17 08:59 Last Admin: 08/25/17 08:44 Dose: 1,000 iu Donepezil HCl (Aricept) 10 mg PO HS [facility] Stop: 10/13/17 20:59 Last Admin: 08/24/17 20:34 Dose: 10 mg Escitalopram Oxalate (Lexapro) 10 mg PO DAILY [facility]; Protocol Stop: 10/19/17 08:59 Last Admin: 08/25/17 08:44 Dose: 10 mg Levothyroxine Sodium (Synthroid) 0.1 mg PO QDAC [facility] Stop: 10/13/17 07:29 Last Admin: 08/25/17 06:39 Dose: 0.1 mg Lorazepam (Ativan) 0.5 mg PO Q4HR PRN; Protocol PRN Reason: Agitation Stop: 09/10/17 16:34 Last Admin: 08/25/17 05:07 Dose: 0.5 mg Magnesium Hydroxide (Milk Of Magnesia) 30 ml PO HS PRN PRN Reason: Constipation Memantine (Namenda) 10 mg PO BID [facility] Stop: 10/20/17 08:59 Last Admin: 08/25/17 17:19 Dose: 10 mg Multivitamins/Vitamin C (Theragran) 1 tab PO DAILY [facility] Stop: 10/11/17 08:59 Last Admin: 08/25/17 08:45 Dose: 1 tab Trazodone HCl (Desyrel) 75 mg PO HS [facility]MAINE; Protocol Stop: 10/11/17 20:59 Last Admin: 08/24/17 20:34 Dose: 75 mg General: demented HEENT: NC/AT, PERRLA, anicteric sclerae, throat clear Neck: +2 carotid pulse wo bruit, No LAD Cardiovascular: RRR, Normal S1, Normal S2, without murmur Abdomen: non-tender, distended Neurological: no change Internal Medicine Assmt/Plan - Assessment Assessment: 1.HTN. 2.HYPOTHYROIDISIM. 3.DEMENTIA. - Plan Plan: CONTINUE ON CURRENT MEDICATION AND DIET. Nutritional Asmnt/Malnutr-PDOC - Dietary Evaluation Malnutrition Findings (Please click <Entered> for more info): Nutritional Asmnt/Malnutrition Start: 08/15/17 14: 36 Text: Status: Complete Freq: Protocol: Document 08/15/17 14:36 LCHENG (Rec: 08/15/17 14:43 LCHENG [email or web address]) Nutritional Asmnt/Malnutrition Patient General Information Nutritional Screening Moderate Risk Diagnosis psychosis Pertinent Medical Hx/Surgical Hx HTn, hypothyroidism, chronic back pain, DJD, dementia Subjective Information Pt seen sitting up in bed at time of visit, PIANO SOUNDING BOARD MATCHER helped to set up lunch tray. Pt reported good appetite. Per EMR, PO intake 75-100% of meals. Current Diet Order/ Nutrition Support regular Pertinent Medications vit D3, synthorid, theragran Pertinent Labs 08/15 K 3.4, Cr 0.5, glucose 108 Nutritional Hx/Data Height 1.52 m Height (Calculated Centimeters) 152.4 Current Weight (lbs) 48.081 kg Weight (Calculated Kilograms) 48.1 Weight (Calculated Grams) 67146.8 [place] Body Weight 100 Body Mass Index (BMI) 20.7 Weight Status Approriate GI Symptoms GI Symptoms None Last BM 08/13 Difficult in: None Skin Integrity/Comment: intact Current %PO Good (75-100%) Estimated Nutritional Goals BEE in Kcals: Using Current wt Calories/Kcals/Kg 25-30 Kcals Calculated 8267-3869 Protein: Using Current wt Protein g/k Protein Calculated 48 Fluid: ml 1200-1440ml (1ml/kcal) Nutritional Problem No current Nutrition Prob Problem N/A Malnutrition Alert Is there a minimum of two criteria No selected? Query Text:Check all the applicable criteria. A minimum of two criteria are recommended for diagnosis of either severe or non-severe malnutrition. Malnutrition Related to Morbid Obesity Malnutrition related to morbid obesity No Intervention/Recommendation Comments 1. Continue with regular diet as ordered. 2. Monitor PO intake, wt, labs and skin integrity 3. F/U as low risk in 7 days, 08/21 Expected Outcomes/Goals Expected Outcomes/Goals 1. PO intake to meet at least 75% of nutritional needs. 2. Wt stability, skin to remain intact, labs to approach WNL.
[2017-08-26] MEDS: Levothyroxine 0.1 Mg Tab PO SCH (06:40)
--- NOTE | 2017-08-26 07:19 | Progress Notes ---
DATE: SUBJECTIVE: Chart reviewed and the patient interviewed. Also discussed the patient's condition with the staff and reviewed records and labs. The patient is still in a depressed mood. The patient also is still withdrawn and is interacting minimally with others. The patient also seems to be slightly confused. She is having disorganized thoughts. The patient is compliant with taking her medications with no side effects of medications. ASSESSMENT: The patient is still depressed and confused. TREATMENT PLAN: Continue to monitor her behavior closely and continue to work on adjusting psychotropic medications and also working on discharge plans. JOB# [id number]
[2017-08-26] MEDS: Atenolol 100mg Tab PO SCH (08:35)
[2017-08-26] MEDS: Multivitamin Tab PO SCH (08:37)
--- NOTE | 2017-08-26 21:39 | Internal Medicine Prog Note ---
Internal Medicine Subjective - Subjective Service Date: 08/26/17 Patient seen and examined:: with staff Patient is:: awake, in bed, confused Per staff patient has:: no adverse event Internal Medicine Objective - Results Result Diagrams: 08/12/17 05:50 08/15/17 07:00 Recent Labs: Laboratory Last Values WBC 8.5 Th/cmm (4.8-10.8) 08/12/17 05:50 RBC 4.27 Mil/cmm (3.80-5.20) 08/12/17 05:50 Hgb 12.8 gm/dL (12-16) 08/12/17 05:50 Hct 37.3 % (41.0-60) L 08/12/17 05:50 MCV 87.4 fl (81-100) 08/12/17 05:50 MCH 30.0 pg (27.0-31.0) 08/12/17 05:50 MCHC Differential 34.3 pg (28.0-36.0) 08/12/17 05:50 RDW 13.9 % (11.5-20.0) 08/12/17 05:50 Plt Count 280 Th/cmm (150-400) 08/12/17 05:50 MPV 8.7 fl 08/12/17 05:50 Neutrophils % 70.5 % (40.0-80.0) 08/12/17 05:50 Lymphocytes % 18.4 % (20.0-50.0) L 08/12/17 05:50 Monocytes % 9.2 % (2.0-10.0) 08/12/17 05:50 Eosinophils % 1.3 % (0.0-5.0) 08/12/17 05:50 Basophils % 0.6 % (0.0-2.0) 08/12/17 05:50 Sodium 139 mEq/L (136-145) 08/15/17 07:00 Potassium 3.4 mEq/L (3.5-5.1) L 08/15/17 07:00 Chloride 104 mEq/L (98-107) 08/15/17 07:00 Carbon Dioxide 28.5 mEq/L (21.0-31.0) 08/15/17 07:00 Anion Gap 9.9 (7.0-16.0) 08/15/17 07:00 BUN 18 mg/dL (7-25) 08/15/17 07:00 Creatinine 0.5 mg/dL (0.6-1.2) L 08/15/17 07:00 Est GFR ( Amer) TNP 08/15/17 07:00 Est GFR (Non-Af Amer) TNP 08/15/17 07:00 BUN/Creatinine Ratio 36.0 08/15/17 07:00 Glucose 108 mg/dL (70-105) H 08/15/17 07:00 POC Glucose 92 MG/DL (70 - 105) 08/23/17 20:50 Calcium 8.7 mg/dL (8.6-10.3) 08/15/17 07:00 Total Bilirubin 0.4 mg/dL (0.3-1.0) 08/12/17 05:50 AST 24 U/L (13-39) 08/12/17 05:50 ALT 19 U/L (7-52) 08/12/17 05:50 Alkaline Phosphatase 50 U/L (34-104) 08/12/17 05:50 Total Protein 7.0 gm/dL (6.0-8.3) 08/12/17 05:50 Albumin 3.9 gm/dL (3.7-5.3) 08/12/17 05:50 Globulin 3.1 gm/dL 08/12/17 05:50 Albumin/Globulin Ratio 1.3 (1.0-1.8) 08/12/17 05:50 - Physical Exam Vitals and I&O: Vital Signs Temp 99.1 F 08/26/17 20:54 Pulse 62 08/26/17 20:54 Resp 18 08/26/17 20:54 BP 107/59 08/26/17 20:54 Pulse Ox 97 08/26/17 20:54 Intake & Output 08/26/17 08/26/17 08/27/17 06:59 18:59 06:59 Intake Total 240 1200 240 Balance 240 1200 240 Intake: Oral 240 1200 240 Other: # Voids 1 3 2 # Bowel Movements 1 0 Active Medications: Current Medications Acetaminophen (Tylenol) 650 mg PO Q4HR PRN PRN Reason: Mild Pain / Temp above 100 Stop: 10/10/17 16:34 Last Admin: 08/12/17 20:09 Dose: 650 mg Al Hydrox/Mg Hydrox/Simethicone (Maalox) 30 ml PO Q4HR PRN PRN Reason: GI DISTRESS Stop: 10/10/17 16:34 Amlodipine Besylate (Norvasc) 5 mg PO DAILY TREMAINE Stop: 10/13/17 08:59 Last Admin: 08/26/17 08:33 Dose: Not Given Atenolol (Tenormin) 100 mg PO DAILY TREMAINE Stop: 10/13/17 08:59 Last Admin: 08/26/17 08:35 Dose: Not Given Baclofen (Lioresal) 20 mg PO TID PRN PRN Reason: Spasms Stop: 10/13/17 08:59 Last Admin: 08/22/17 09:04 Dose: 20 mg Cholecalciferol (Vitamin D3) 1,000 iu PO DAILY TREMAINE Stop: 10/13/17 08:59 Last Admin: 08/26/17 08:37 Dose: 1,000 iu Donepezil HCl (Aricept) 10 mg PO HS TREMAINE Stop: 10/13/17 20:59 Last Admin: 08/26/17 20:25 Dose: 10 mg Escitalopram Oxalate (Lexapro) 10 mg PO DAILY TREMAINE; Protocol Stop: 10/19/17 08:59 Last Admin: 08/26/17 08:37 Dose: 10 mg Levothyroxine Sodium (Synthroid) 0.1 mg PO QDAC TREMAINE Stop: 10/13/17 07:29 Last Admin: 08/26/17 06:40 Dose: 0.1 mg Magnesium Hydroxide (Milk Of Magnesia) 30 ml PO HS PRN PRN Reason: Constipation Memantine (Namenda) 10 mg PO BID TREMAINE Stop: 10/20/17 08:59 Last Admin: 08/26/17 16:27 Dose: 10 mg Multivitamins/Vitamin C (Theragran) 1 tab PO DAILY TREMAINE Stop: 10/11/17 08:59 Last Admin: 08/26/17 08:37 Dose: 1 tab Trazodone HCl (Desyrel) 75 mg PO HS TREMAINE; Protocol Stop: 10/11/17 20:59 Last Admin: 08/26/17 20:25 Dose: 75 mg General: demented HEENT: NC/AT, PERRLA, anicteric sclerae, throat clear Neck: +2 carotid pulse wo bruit, No LAD Cardiovascular: RRR, Normal S1, Normal S2, without murmur Abdomen: non-tender, distended Neurological: no change Internal Medicine Assmt/Plan - Assessment Assessment: 1.HTN. 2.HYPOTHYROIDISIM. 3.DEMENTIA. - Plan Plan: CONTINUE ON CURRENT MEDICATION AND DIET. Nutritional Asmnt/Malnutr-PDOC - Dietary Evaluation Malnutrition Findings (Please click <Entered> for more info): Nutritional Asmnt/Malnutrition Start: 08/15/17 14: 36 Text: Status: Complete Freq: Protocol: Document 08/15/17 14:36 LCHENG (Rec: 08/15/17 14:43 [email or web address] [email or web address]) Nutritional Asmnt/Malnutrition Patient General Information Nutritional Screening Moderate Risk Diagnosis psychosis Pertinent Medical Hx/Surgical Hx HTn, hypothyroidism, chronic back pain, DJD, dementia Subjective Information Pt seen sitting up in bed at time of visit, PERSONAL INJURY [employer]ALEGAL helped to set up lunch tray. Pt reported good appetite. Per EMR, PO intake 75-100% of meals. Current Diet Order/ Nutrition Support regular Pertinent Medications vit D3, synthorid, theragran Pertinent Labs 08/15 K 3.4, Cr 0.5, glucose 108 Nutritional Hx/Data Height 1.52 m Height (Calculated Centimeters) 152.4 Current Weight (lbs) 48.081 kg Weight (Calculated Kilograms) 48.1 Weight (Calculated Grams) 70615.8 [place] Body Weight 100 Body Mass Index (BMI) 20.7 Weight Status Approriate GI Symptoms GI Symptoms None Last BM 08/13 Difficult in: None Skin Integrity/Comment: intact Current %PO Good (75-100%) Estimated Nutritional Goals BEE in Kcals: Using Current wt Calories/Kcals/Kg 25-30 Kcals Calculated 2984-9048 Protein: Using Current wt Protein g/k Protein Calculated 48 Fluid: ml 1200-1440ml (1ml/kcal) Nutritional Problem No current Nutrition Prob Problem N/A Malnutrition Alert Is there a minimum of two criteria No selected? Query Text:Check all the applicable criteria. A minimum of two criteria are recommended for diagnosis of either severe or non-severe malnutrition. Malnutrition Related to Morbid Obesity Malnutrition related to morbid obesity No Intervention/Recommendation Comments 1. Continue with regular diet as ordered. 2. Monitor PO intake, wt, labs and skin integrity 3. F/U as low risk in 7 days, 08/21 Expected Outcomes/Goals Expected Outcomes/Goals 1. PO intake to meet at least 75% of nutritional needs. 2. Wt stability, skin to remain intact, labs to approach WNL.
[2017-08-27] MEDS: Levothyroxine 0.1 Mg Tab PO SCH (06:31)
[2017-08-27] MEDS: Multivitamin Tab PO SCH (08:16)
[2017-08-27] MEDS: Atenolol 100mg Tab PO SCH (08:16)
--- NOTE | 2017-08-27 21:05 | Internal Medicine Prog Note ---
Internal Medicine Subjective - Subjective Service Date: 08/27/17 Patient seen and examined:: with staff Patient is:: awake, in bed, confused Per staff patient has:: no adverse event Internal Medicine Objective - Results Result Diagrams: 08/12/17 05:50 08/15/17 07:00 Recent Labs: Laboratory Last Values WBC 8.5 Th/cmm (4.8-10.8) 08/12/17 05:50 RBC 4.27 Mil/cmm (3.80-5.20) 08/12/17 05:50 Hgb 12.8 gm/dL (12-16) 08/12/17 05:50 Hct 37.3 % (41.0-60) L 08/12/17 05:50 MCV 87.4 fl (81-100) 08/12/17 05:50 MCH 30.0 pg (27.0-31.0) 08/12/17 05:50 MCHC Differential 34.3 pg (28.0-36.0) 08/12/17 05:50 RDW 13.9 % (11.5-20.0) 08/12/17 05:50 Plt Count 280 Th/cmm (150-400) 08/12/17 05:50 MPV 8.7 fl 08/12/17 05:50 Neutrophils % 70.5 % (40.0-80.0) 08/12/17 05:50 Lymphocytes % 18.4 % (20.0-50.0) L 08/12/17 05:50 Monocytes % 9.2 % (2.0-10.0) 08/12/17 05:50 Eosinophils % 1.3 % (0.0-5.0) 08/12/17 05:50 Basophils % 0.6 % (0.0-2.0) 08/12/17 05:50 Sodium 139 mEq/L (136-145) 08/15/17 07:00 Potassium 3.4 mEq/L (3.5-5.1) L 08/15/17 07:00 Chloride 104 mEq/L (98-107) 08/15/17 07:00 Carbon Dioxide 28.5 mEq/L (21.0-31.0) 08/15/17 07:00 Anion Gap 9.9 (7.0-16.0) 08/15/17 07:00 BUN 18 mg/dL (7-25) 08/15/17 07:00 Creatinine 0.5 mg/dL (0.6-1.2) L 08/15/17 07:00 Est GFR ( Amer) TNP 08/15/17 07:00 Est GFR (Non-Af Amer) TNP 08/15/17 07:00 BUN/Creatinine Ratio 36.0 08/15/17 07:00 Glucose 108 mg/dL (70-105) H 08/15/17 07:00 POC Glucose 92 MG/DL (70 - 105) 08/23/17 20:50 Calcium 8.7 mg/dL (8.6-10.3) 08/15/17 07:00 Total Bilirubin 0.4 mg/dL (0.3-1.0) 08/12/17 05:50 AST 24 U/L (13-39) 08/12/17 05:50 ALT 19 U/L (7-52) 08/12/17 05:50 Alkaline Phosphatase 50 U/L (34-104) 08/12/17 05:50 Total Protein 7.0 gm/dL (6.0-8.3) 08/12/17 05:50 Albumin 3.9 gm/dL (3.7-5.3) 08/12/17 05:50 Globulin 3.1 gm/dL 08/12/17 05:50 Albumin/Globulin Ratio 1.3 (1.0-1.8) 08/12/17 05:50 - Physical Exam Vitals and I&O: Vital Signs Temp 99.1 F 08/27/17 15:01 Pulse 70 08/27/17 15:01 Resp 20 08/27/17 15:01 BP 110/57 08/27/17 15:01 Pulse Ox 96 08/27/17 15:01 Intake & Output 08/27/17 08/27/17 08/28/17 06:59 18:59 06:59 Intake Total 480 1200 Balance 480 1200 Intake: Oral 480 1200 Other: # Voids 1 3 # Bowel Movements 0 1 Active Medications: Current Medications Acetaminophen (Tylenol) 650 mg PO Q4HR PRN PRN Reason: Mild Pain / Temp above 100 Stop: 10/10/17 16:34 Last Admin: 08/12/17 20:09 Dose: 650 mg Al Hydrox/Mg Hydrox/Simethicone (Maalox) 30 ml PO Q4HR PRN PRN Reason: GI DISTRESS Stop: 10/10/17 16:34 Amlodipine Besylate (Norvasc) 5 mg PO DAILY TREMAINE Stop: 10/13/17 08:59 Last Admin: 08/27/17 08:15 Dose: Not Given Atenolol (Tenormin) 100 mg PO DAILY TREMAINE Stop: 10/13/17 08:59 Last Admin: 08/27/17 08:16 Dose: Not Given Baclofen (Lioresal) 20 mg PO TID PRN PRN Reason: Spasms Stop: 10/13/17 08:59 Last Admin: 08/22/17 09:04 Dose: 20 mg Cholecalciferol (Vitamin D3) 1,000 iu PO DAILY TREMAINE Stop: 10/13/17 08:59 Last Admin: 08/27/17 08:16 Dose: 1,000 iu Donepezil HCl (Aricept) 10 mg PO HS TREMAINE Stop: 10/13/17 20:59 Last Admin: 08/27/17 20:49 Dose: 10 mg Escitalopram Oxalate (Lexapro) 10 mg PO DAILY TREMAINE; Protocol Stop: 10/19/17 08:59 Last Admin: 08/27/17 08:16 Dose: 10 mg Levothyroxine Sodium (Synthroid) 0.1 mg PO QDAC TREMAINE Stop: 10/13/17 07:29 Last Admin: 08/27/17 06:31 Dose: 0.1 mg Magnesium Hydroxide (Milk Of Magnesia) 30 ml PO HS PRN PRN Reason: Constipation Memantine (Namenda) 10 mg PO BID TREMAINE Stop: 10/20/17 08:59 Last Admin: 08/27/17 17:46 Dose: 10 mg Multivitamins/Vitamin C (Theragran) 1 tab PO DAILY TREMAINE Stop: 10/11/17 08:59 Last Admin: 08/27/17 08:16 Dose: 1 tab Trazodone HCl (Desyrel) 75 mg PO HS TREMAINE; Protocol Stop: 10/11/17 20:59 Last Admin: 08/27/17 20:49 Dose: 75 mg General: demented HEENT: NC/AT, PERRLA, anicteric sclerae, throat clear Neck: +2 carotid pulse wo bruit, No LAD Cardiovascular: RRR, Normal S1, Normal S2, without murmur Abdomen: non-tender, distended Neurological: no change Internal Medicine Assmt/Plan - Assessment Assessment: 1.HTN. 2.HYPOTHYROIDISIM. 3.DEMENTIA. - Plan Plan: CONTINUE ON CURRENT MEDICATION AND DIET. Nutritional Asmnt/Malnutr-PDOC - Dietary Evaluation Malnutrition Findings (Please click <Entered> for more info): Nutritional Asmnt/Malnutrition Start: 08/15/17 14: 36 Text: Status: Complete Freq: Protocol: Document 08/15/17 14:36 LCHENG (Rec: 08/15/17 14:43 LCHENG [email or web address]) Nutritional Asmnt/Malnutrition Patient General Information Nutritional Screening Moderate Risk Diagnosis psychosis Pertinent Medical Hx/Surgical Hx HTn, hypothyroidism, chronic back pain, DJD, dementia Subjective Information Pt seen sitting up in bed at time of visit, TELEVISION ENGINEER helped to set up lunch tray. Pt reported good appetite. Per EMR, PO intake 75-100% of meals. Current Diet Order/ Nutrition Support regular Pertinent Medications vit D3, synthorid, theragran Pertinent Labs 08/15 K 3.4, Cr 0.5, glucose 108 Nutritional Hx/Data Height 1.52 m Height (Calculated Centimeters) 152.4 Current Weight (lbs) 48.081 kg Weight (Calculated Kilograms) 48.1 Weight (Calculated Grams) 90051.8 [place] Body Weight 100 Body Mass Index (BMI) 20.7 Weight Status Approriate GI Symptoms GI Symptoms None Last BM 08/13 Difficult in: None Skin Integrity/Comment: intact Current %PO Good (75-100%) Estimated Nutritional Goals BEE in Kcals: Using Current wt Calories/Kcals/Kg 25-30 Kcals Calculated 0977-6964 Protein: Using Current wt Protein g/k Protein Calculated 48 Fluid: ml 1200-1440ml (1ml/kcal) Nutritional Problem No current Nutrition Prob Problem N/A Malnutrition Alert Is there a minimum of two criteria No selected? Query Text:Check all the applicable criteria. A minimum of two criteria are recommended for diagnosis of either severe or non-severe malnutrition. Malnutrition Related to Morbid Obesity Malnutrition related to morbid obesity No Intervention/Recommendation Comments 1. Continue with regular diet as ordered. 2. Monitor PO intake, wt, labs and skin integrity 3. F/U as low risk in 7 days, 08/21 Expected Outcomes/Goals Expected Outcomes/Goals 1. PO intake to meet at least 75% of nutritional needs. 2. Wt stability, skin to remain intact, labs to approach WNL.
--- NOTE | 2017-08-28 01:55 | Progress Notes ---
DATE: SUBJECTIVE: Chart reviewed and the patient interviewed. Also discussed the patient's condition with the staff and reviewed records and labs. The patient is still in a depressed mood and still have labile affect. The patient also is still withdrawn and wants to be left alone. She is also forgetful and needs lots of redirections. Otherwise, the patient is compliant with taking her medications with no side effect of medications. ASSESSMENT: The patient is still depressed. TREATMENT PLAN: We will continue monitoring her behavior and her condition closely. Also, continue Lexapro, Namenda, and trazodone of same dose. Also, continue to work on ineffective coping and followup. JOB# [id number]
[2017-08-28] MEDS: Levothyroxine 0.1 Mg Tab PO SCH (06:42)
[2017-08-28] MEDS: Multivitamin Tab PO SCH (09:22)
[2017-08-28] MEDS: Atenolol 100mg Tab PO SCH (09:25)
--- NOTE | 2017-08-28 21:44 | Progress Notes ---
DATE: SUBJECTIVE: Chart reviewed and the patient interviewed. Also discussed the patient's condition with the staff and reviewed records and labs. The patient is still in a depressed mood. The patient also is still isolative and withdrawn and stays in bed most of the time. She also is restless. She is still having difficulty expressing herself and expressing her feelings. She also is interacting minimally with others. The patient also is forgetful and need lots of redirections. Otherwise, the patient continued to comply with taking Lexapro and Aricept with no side effects. ASSESSMENT: The patient is still depressed and needs redirections and confused. TREATMENT PLAN: Encouraged the patient to get out of her isolation and to interact more with others. Also to continue to work on her depressed mood and her isolative behavior. We will continue to follow up closely. JOB# [id number]
[2017-08-29] MEDS: Levothyroxine 0.1 Mg Tab PO SCH (06:35)
[2017-08-29] MEDS: Multivitamin Tab PO SCH (09:08)
[2017-08-29] MEDS: Atenolol 100mg Tab PO SCH (09:34)
--- NOTE | 2017-08-29 16:44 | Internal Medicine Prog Note ---
Internal Medicine Subjective - Subjective Service Date: 08/28/17 Patient seen and examined:: with staff Patient is:: awake, in bed, confused Per staff patient has:: no adverse event Internal Medicine Objective - Results Result Diagrams: 08/12/17 05:50 08/15/17 07:00 Recent Labs: Laboratory Last Values WBC 8.5 Th/cmm (4.8-10.8) 08/12/17 05:50 RBC 4.27 Mil/cmm (3.80-5.20) 08/12/17 05:50 Hgb 12.8 gm/dL (12-16) 08/12/17 05:50 Hct 37.3 % (41.0-60) L 08/12/17 05:50 MCV 87.4 fl (81-100) 08/12/17 05:50 MCH 30.0 pg (27.0-31.0) 08/12/17 05:50 MCHC Differential 34.3 pg (28.0-36.0) 08/12/17 05:50 RDW 13.9 % (11.5-20.0) 08/12/17 05:50 Plt Count 280 Th/cmm (150-400) 08/12/17 05:50 MPV 8.7 fl 08/12/17 05:50 Neutrophils % 70.5 % (40.0-80.0) 08/12/17 05:50 Lymphocytes % 18.4 % (20.0-50.0) L 08/12/17 05:50 Monocytes % 9.2 % (2.0-10.0) 08/12/17 05:50 Eosinophils % 1.3 % (0.0-5.0) 08/12/17 05:50 Basophils % 0.6 % (0.0-2.0) 08/12/17 05:50 Sodium 139 mEq/L (136-145) 08/15/17 07:00 Potassium 3.4 mEq/L (3.5-5.1) L 08/15/17 07:00 Chloride 104 mEq/L (98-107) 08/15/17 07:00 Carbon Dioxide 28.5 mEq/L (21.0-31.0) 08/15/17 07:00 Anion Gap 9.9 (7.0-16.0) 08/15/17 07:00 BUN 18 mg/dL (7-25) 08/15/17 07:00 Creatinine 0.5 mg/dL (0.6-1.2) L 08/15/17 07:00 Est GFR ( Amer) TNP 08/15/17 07:00 Est GFR (Non-Af Amer) TNP 08/15/17 07:00 BUN/Creatinine Ratio 36.0 08/15/17 07:00 Glucose 108 mg/dL (70-105) H 08/15/17 07:00 POC Glucose 92 MG/DL (70 - 105) 08/23/17 20:50 Calcium 8.7 mg/dL (8.6-10.3) 08/15/17 07:00 Total Bilirubin 0.4 mg/dL (0.3-1.0) 08/12/17 05:50 AST 24 U/L (13-39) 08/12/17 05:50 ALT 19 U/L (7-52) 08/12/17 05:50 Alkaline Phosphatase 50 U/L (34-104) 08/12/17 05:50 Total Protein 7.0 gm/dL (6.0-8.3) 08/12/17 05:50 Albumin 3.9 gm/dL (3.7-5.3) 08/12/17 05:50 Globulin 3.1 gm/dL 08/12/17 05:50 Albumin/Globulin Ratio 1.3 (1.0-1.8) 08/12/17 05:50 - Physical Exam Vitals and I&O: Vital Signs Temp 98.7 F 08/28/17 20:00 Pulse 75 08/29/17 09:07 Resp 19 08/28/17 20:00 BP 137/73 08/29/17 09:07 Pulse Ox 97 08/28/17 20:00 Intake & Output 08/28/17 08/29/17 08/29/17 18:59 06:59 18:59 Intake Total 1200 420 Balance 1200 420 Intake: Oral 1200 420 Other: # Voids 3 2 # Bowel Movements 1 Active Medications: Current Medications Acetaminophen (Tylenol) 650 mg PO Q4HR PRN PRN Reason: Mild Pain / Temp above 100 Stop: 10/10/17 16:34 Last Admin: 08/29/17 09:33 Dose: 650 mg Al Hydrox/Mg Hydrox/Simethicone (Maalox) 30 ml PO Q4HR PRN PRN Reason: GI DISTRESS Stop: 10/10/17 16:34 Amlodipine Besylate (Norvasc) 5 mg PO DAILY TREMAINE Stop: 10/13/17 08:59 Last Admin: 08/29/17 09:07 Dose: 5 mg Atenolol (Tenormin) 100 mg PO DAILY TREMAINE Stop: 10/13/17 08:59 Last Admin: 08/29/17 09:34 Dose: Not Given Baclofen (Lioresal) 20 mg PO TID PRN PRN Reason: Spasms Stop: 10/13/17 08:59 Last Admin: 08/29/17 14:34 Dose: 20 mg Cholecalciferol (Vitamin D3) 1,000 iu PO DAILY TREMAINE Stop: 10/13/17 08:59 Last Admin: 08/29/17 09:07 Dose: 1,000 iu Donepezil HCl (Aricept) 10 mg PO HS TREMAINE Stop: 10/13/17 20:59 Last Admin: 08/28/17 20:05 Dose: 10 mg Escitalopram Oxalate (Lexapro) 10 mg PO DAILY TREMAINE; Protocol Stop: 10/19/17 08:59 Last Admin: 08/29/17 09:33 Dose: Not Given Levothyroxine Sodium (Synthroid) 0.1 mg PO QDAC TREMAINE Stop: 10/13/17 07:29 Last Admin: 08/29/17 06:35 Dose: 0.1 mg Magnesium Hydroxide (Milk Of Magnesia) 30 ml PO HS PRN PRN Reason: Constipation Memantine (Namenda) 10 mg PO BID TREMAINE Stop: 10/20/17 08:59 Last Admin: 08/29/17 09:08 Dose: 10 mg Multivitamins/Vitamin C (Theragran) 1 tab PO DAILY TREMAINE Stop: 10/11/17 08:59 Last Admin: 08/29/17 09:08 Dose: 1 tab Trazodone HCl (Desyrel) 75 mg PO HS TREMAINE; Protocol Stop: 10/11/17 20:59 Last Admin: 08/28/17 20:05 Dose: 75 mg General: demented HEENT: NC/AT, PERRLA, anicteric sclerae, throat clear Neck: +2 carotid pulse wo bruit, No LAD Cardiovascular: RRR, Normal S1, Normal S2, without murmur Abdomen: non-tender, distended Neurological: no change Internal Medicine Assmt/Plan - Assessment Assessment: 1.HTN. 2.HYPOTHYROIDISIM. 3.DEMENTIA. - Plan Plan: CONTINUE ON CURRENT MEDICATION AND DIET. Nutritional Asmnt/Malnutr-PDOC - Dietary Evaluation Malnutrition Findings (Please click <Entered> for more info): Nutritional Asmnt/Malnutrition Start: 08/15/17 14: 36 Text: Status: Complete Freq: Protocol: Document 08/15/17 14:36 LCHENG (Rec: 08/15/17 14:43 LCHENG [email or web address]) Nutritional Asmnt/Malnutrition Patient General Information Nutritional Screening Moderate Risk Diagnosis psychosis Pertinent Medical Hx/Surgical Hx HTn, hypothyroidism, chronic back pain, DJD, dementia Subjective Information Pt seen sitting up in bed at time of visit, BUNCH BREAKER helped to set up lunch tray. Pt reported good appetite. Per EMR, PO intake 75-100% of meals. Current Diet Order/ Nutrition Support regular Pertinent Medications vit D3, synthorid, theragran Pertinent Labs 08/15 K 3.4, Cr 0.5, glucose 108 Nutritional Hx/Data Height 1.52 m Height (Calculated Centimeters) 152.4 Current Weight (lbs) 48.081 kg Weight (Calculated Kilograms) 48.1 Weight (Calculated Grams) 43901.8 [place] Body Weight 100 Body Mass Index (BMI) 20.7 Weight Status Approriate GI Symptoms GI Symptoms None Last BM 08/13 Difficult in: None Skin Integrity/Comment: intact Current %PO Good (75-100%) Estimated Nutritional Goals BEE in Kcals: Using Current wt Calories/Kcals/Kg 25-30 Kcals Calculated 5025-5970 Protein: Using Current wt Protein g/k Protein Calculated 48 Fluid: ml 1200-1440ml (1ml/kcal) Nutritional Problem No current Nutrition Prob Problem N/A Malnutrition Alert Is there a minimum of two criteria No selected? Query Text:Check all the applicable criteria. A minimum of two criteria are recommended for diagnosis of either severe or non-severe malnutrition. Malnutrition Related to Morbid Obesity Malnutrition related to morbid obesity No Intervention/Recommendation Comments 1. Continue with regular diet as ordered. 2. Monitor PO intake, wt, labs and skin integrity 3. F/U as low risk in 7 days, 08/21 Expected Outcomes/Goals Expected Outcomes/Goals 1. PO intake to meet at least 75% of nutritional needs. 2. Wt stability, skin to remain intact, labs to approach WNL.
[2017-08-30] MEDS: Levothyroxine 0.1 Mg Tab PO SCH (06:31)
[2017-08-30] MEDS: Multivitamin Tab PO SCH (09:34)
[2017-08-30] MEDS: Atenolol 100mg Tab PO SCH (09:34)
--- NOTE | 2017-08-30 17:10 | Internal Medicine Prog Note ---
Internal Medicine Subjective - Subjective Service Date: 08/30/17 Patient seen and examined:: with staff Patient is:: awake, in bed, confused Per staff patient has:: no adverse event Internal Medicine Objective - Results Result Diagrams: 08/12/17 05:50 08/15/17 07:00 Recent Labs: Laboratory Last Values WBC 8.5 Th/cmm (4.8-10.8) 08/12/17 05:50 RBC 4.27 Mil/cmm (3.80-5.20) 08/12/17 05:50 Hgb 12.8 gm/dL (12-16) 08/12/17 05:50 Hct 37.3 % (41.0-60) L 08/12/17 05:50 MCV 87.4 fl (81-100) 08/12/17 05:50 MCH 30.0 pg (27.0-31.0) 08/12/17 05:50 MCHC Differential 34.3 pg (28.0-36.0) 08/12/17 05:50 RDW 13.9 % (11.5-20.0) 08/12/17 05:50 Plt Count 280 Th/cmm (150-400) 08/12/17 05:50 MPV 8.7 fl 08/12/17 05:50 Neutrophils % 70.5 % (40.0-80.0) 08/12/17 05:50 Lymphocytes % 18.4 % (20.0-50.0) L 08/12/17 05:50 Monocytes % 9.2 % (2.0-10.0) 08/12/17 05:50 Eosinophils % 1.3 % (0.0-5.0) 08/12/17 05:50 Basophils % 0.6 % (0.0-2.0) 08/12/17 05:50 Sodium 139 mEq/L (136-145) 08/15/17 07:00 Potassium 3.4 mEq/L (3.5-5.1) L 08/15/17 07:00 Chloride 104 mEq/L (98-107) 08/15/17 07:00 Carbon Dioxide 28.5 mEq/L (21.0-31.0) 08/15/17 07:00 Anion Gap 9.9 (7.0-16.0) 08/15/17 07:00 BUN 18 mg/dL (7-25) 08/15/17 07:00 Creatinine 0.5 mg/dL (0.6-1.2) L 08/15/17 07:00 Est GFR ( Amer) TNP 08/15/17 07:00 Est GFR (Non-Af Amer) TNP 08/15/17 07:00 BUN/Creatinine Ratio 36.0 08/15/17 07:00 Glucose 108 mg/dL (70-105) H 08/15/17 07:00 POC Glucose 92 MG/DL (70 - 105) 08/23/17 20:50 Calcium 8.7 mg/dL (8.6-10.3) 08/15/17 07:00 Total Bilirubin 0.4 mg/dL (0.3-1.0) 08/12/17 05:50 AST 24 U/L (13-39) 08/12/17 05:50 ALT 19 U/L (7-52) 08/12/17 05:50 Alkaline Phosphatase 50 U/L (34-104) 08/12/17 05:50 Total Protein 7.0 gm/dL (6.0-8.3) 08/12/17 05:50 Albumin 3.9 gm/dL (3.7-5.3) 08/12/17 05:50 Globulin 3.1 gm/dL 08/12/17 05:50 Albumin/Globulin Ratio 1.3 (1.0-1.8) 08/12/17 05:50 - Physical Exam Vitals and I&O: Vital Signs Temp 99.4 F 08/30/17 16:11 Pulse 81 08/30/17 16:11 Resp 18 08/30/17 16:11 BP 101/65 08/30/17 16:11 Pulse Ox 98 08/30/17 16:11 Intake & Output 08/29/17 08/30/17 08/30/17 18:59 06:59 18:59 Intake Total 1300 240 Balance 1300 240 Intake: Oral 1300 240 Other: # Voids 3 2 # Bowel Movements 0 Active Medications: Current Medications Acetaminophen (Tylenol) 650 mg PO Q4HR PRN PRN Reason: Mild Pain / Temp above 100 Stop: 10/10/17 16:34 Last Admin: 08/29/17 09:33 Dose: 650 mg Al Hydrox/Mg Hydrox/Simethicone (Maalox) 30 ml PO Q4HR PRN PRN Reason: GI DISTRESS Stop: 10/10/17 16:34 Amlodipine Besylate (Norvasc) 5 mg PO DAILY TREMAINE Stop: 10/13/17 08:59 Last Admin: 08/30/17 09:33 Dose: 5 mg Atenolol (Tenormin) 100 mg PO DAILY TREMAINE Stop: 10/13/17 08:59 Last Admin: 08/30/17 09:34 Dose: 100 mg Baclofen (Lioresal) 20 mg PO TID PRN PRN Reason: Spasms Stop: 10/13/17 08:59 Last Admin: 08/29/17 14:34 Dose: 20 mg Cholecalciferol (Vitamin D3) 1,000 iu PO DAILY TREMAINE Stop: 10/13/17 08:59 Last Admin: 08/30/17 09:34 Dose: 1,000 iu Donepezil HCl (Aricept) 10 mg PO HS TREMAINE Stop: 10/13/17 20:59 Last Admin: 08/29/17 20:55 Dose: 10 mg Escitalopram Oxalate (Lexapro) 10 mg PO DAILY TREMAINE; Protocol Stop: 10/19/17 08:59 Last Admin: 08/30/17 09:34 Dose: 10 mg Levothyroxine Sodium (Synthroid) 0.1 mg PO QDAC TREMAINE Stop: 10/13/17 07:29 Last Admin: 08/30/17 06:31 Dose: 0.1 mg Magnesium Hydroxide (Milk Of Magnesia) 30 ml PO HS PRN PRN Reason: Constipation Memantine (Namenda) 10 mg PO BID TREMAINE Stop: 10/20/17 08:59 Last Admin: 08/30/17 16:23 Dose: 10 mg Multivitamins/Vitamin C (Theragran) 1 tab PO DAILY TREMAINE Stop: 10/11/17 08:59 Last Admin: 08/30/17 09:34 Dose: 1 tab Trazodone HCl (Desyrel) 75 mg PO HS TREMAINE; Protocol Stop: 10/11/17 20:59 Last Admin: 08/29/17 20:55 Dose: 75 mg General: demented HEENT: NC/AT, PERRLA, anicteric sclerae, throat clear Neck: +2 carotid pulse wo bruit, No LAD Cardiovascular: RRR, Normal S1, Normal S2, without murmur Abdomen: non-tender, distended Neurological: no change Internal Medicine Assmt/Plan - Assessment Assessment: 1.HTN. 2.HYPOTHYROIDISIM. 3.DEMENTIA. - Plan Plan: CONTINUE ON CURRENT MEDICATION AND DIET. Nutritional Asmnt/Malnutr-PDOC - Dietary Evaluation Malnutrition Findings (Please click <Entered> for more info): Nutritional Asmnt/Malnutrition Start: 08/15/17 14: 36 Text: Status: Complete Freq: Protocol: Document 08/15/17 14:36 [facility] (Rec: 08/15/17 14:43 [email or web address]) Nutritional Asmnt/Malnutrition Patient General Information Nutritional Screening Moderate Risk Diagnosis psychosis Pertinent Medical Hx/Surgical Hx HTn, hypothyroidism, chronic back pain, DJD, dementia Subjective Information Pt seen sitting up in bed at time of visit, SERVICENOW ADMINISTRATOR DEVELOPER helped to set up lunch tray. Pt reported good appetite. Per EMR, PO intake 75-100% of meals. Current Diet Order/ Nutrition Support regular Pertinent Medications vit D3, synthorid, theragran Pertinent Labs 08/15 K 3.4, Cr 0.5, glucose 108 Nutritional Hx/Data Height 1.52 m Height (Calculated Centimeters) 152.4 Current Weight (lbs) 48.081 kg Weight (Calculated Kilograms) 48.1 Weight (Calculated Grams) 47482.8 [place] Body Weight 100 Body Mass Index (BMI) 20.7 Weight Status Approriate GI Symptoms GI Symptoms None Last BM 08/13 Difficult in: None Skin Integrity/Comment: intact Current %PO Good (75-100%) Estimated Nutritional Goals BEE in Kcals: Using Current wt Calories/Kcals/Kg 25-30 Kcals Calculated 1841-6768 Protein: Using Current wt Protein g/k Protein Calculated 48 Fluid: ml 1200-1440ml (1ml/kcal) Nutritional Problem No current Nutrition Prob Problem N/A Malnutrition Alert Is there a minimum of two criteria No selected? Query Text:Check all the applicable criteria. A minimum of two criteria are recommended for diagnosis of either severe or non-severe malnutrition. Malnutrition Related to Morbid Obesity Malnutrition related to morbid obesity No Intervention/Recommendation Comments 1. Continue with regular diet as ordered. 2. Monitor PO intake, wt, labs and skin integrity 3. F/U as low risk in 7 days, 08/21 Expected Outcomes/Goals Expected Outcomes/Goals 1. PO intake to meet at least 75% of nutritional needs. 2. Wt stability, skin to remain intact, labs to approach WNL.
--- NOTE | 2017-08-30 22:04 | Progress Notes ---
DATE: 08/29/2017 SUBJECTIVE: Chart reviewed and the patient interviewed. Also discussed the patient's condition with the staff and reviewed records and labs. The patient continues to be confused and depressed. The patient also is still isolative and withdrawn and stays by herself in her room most of the time. The patient also is refusing to get out of bed and refused to socialize with others and wants to be left alone in her room. She also is still having difficulty formulating any safe plan for self care. ASSESSMENT: The patient is still depressed and withdrawn, but complaint with taking her medications. TREATMENT PLAN: Continue Lexapro and Aricept same dose. Also, working with rehabilitation caseworker in regard to discharge plans and in regard to finding placement for the patient. So far, rehabilitation caseworker cannot find placement for the patient. JOB# [id number]
--- NOTE | 2017-08-30 23:09 | Progress Notes ---
DATE: 08/30/2017 SUBJECTIVE: A 76-year-old female admitted to the hospital, confused, agitated. States, "I am here because I am sick." The patient is unclear as to why she is here. Apparently, she has been wandering in the streets, unable to care for herself. The patient does not know why she is in the hospital now. She does state "____ for a long time." ____ is seeing the patient. Noting she remains depressed, isolative, withdrawn and forgetful, bouts of confusion. Medications were noted including doses and frequencies. The patient is sleeping fairly well, eating with some prompting. ASSESSMENT: The patient remains confused, unruly, and unable to care for basic needs. does not know why she is here. We will continue to monitor. Concerns for her ability to care her basic needs. [facility]# [id number]
[2017-08-31] MEDS: Levothyroxine 0.1 Mg Tab PO SCH (06:32)
[2017-08-31] MEDS: Multivitamin Tab PO SCH (09:45)
[2017-08-31] MEDS: Atenolol 100mg Tab PO SCH (09:46)
--- NOTE | 2017-08-31 16:15 | Internal Medicine Prog Note ---
Internal Medicine Subjective - Subjective Service Date: 08/31/17 Patient seen and examined:: with staff Patient is:: awake, in bed, confused Per staff patient has:: no adverse event Internal Medicine Objective - Results Result Diagrams: 08/12/17 05:50 08/15/17 07:00 Recent Labs: Laboratory Last Values WBC 8.5 Th/cmm (4.8-10.8) 08/12/17 05:50 RBC 4.27 Mil/cmm (3.80-5.20) 08/12/17 05:50 Hgb 12.8 gm/dL (12-16) 08/12/17 05:50 Hct 37.3 % (41.0-60) L 08/12/17 05:50 MCV 87.4 fl (81-100) 08/12/17 05:50 MCH 30.0 pg (27.0-31.0) 08/12/17 05:50 MCHC Differential 34.3 pg (28.0-36.0) 08/12/17 05:50 RDW 13.9 % (11.5-20.0) 08/12/17 05:50 Plt Count 280 Th/cmm (150-400) 08/12/17 05:50 MPV 8.7 fl 08/12/17 05:50 Neutrophils % 70.5 % (40.0-80.0) 08/12/17 05:50 Lymphocytes % 18.4 % (20.0-50.0) L 08/12/17 05:50 Monocytes % 9.2 % (2.0-10.0) 08/12/17 05:50 Eosinophils % 1.3 % (0.0-5.0) 08/12/17 05:50 Basophils % 0.6 % (0.0-2.0) 08/12/17 05:50 Sodium 139 mEq/L (136-145) 08/15/17 07:00 Potassium 3.4 mEq/L (3.5-5.1) L 08/15/17 07:00 Chloride 104 mEq/L (98-107) 08/15/17 07:00 Carbon Dioxide 28.5 mEq/L (21.0-31.0) 08/15/17 07:00 Anion Gap 9.9 (7.0-16.0) 08/15/17 07:00 BUN 18 mg/dL (7-25) 08/15/17 07:00 Creatinine 0.5 mg/dL (0.6-1.2) L 08/15/17 07:00 Est GFR ( Amer) TNP 08/15/17 07:00 Est GFR (Non-Af Amer) TNP 08/15/17 07:00 BUN/Creatinine Ratio 36.0 08/15/17 07:00 Glucose 108 mg/dL (70-105) H 08/15/17 07:00 POC Glucose 92 MG/DL (70 - 105) 08/23/17 20:50 Calcium 8.7 mg/dL (8.6-10.3) 08/15/17 07:00 Total Bilirubin 0.4 mg/dL (0.3-1.0) 08/12/17 05:50 AST 24 U/L (13-39) 08/12/17 05:50 ALT 19 U/L (7-52) 08/12/17 05:50 Alkaline Phosphatase 50 U/L (34-104) 08/12/17 05:50 Total Protein 7.0 gm/dL (6.0-8.3) 08/12/17 05:50 Albumin 3.9 gm/dL (3.7-5.3) 08/12/17 05:50 Globulin 3.1 gm/dL 08/12/17 05:50 Albumin/Globulin Ratio 1.3 (1.0-1.8) 08/12/17 05:50 - Physical Exam Vitals and I&O: Vital Signs Temp 98.3 F 08/31/17 15:32 Pulse 61 08/31/17 15:32 Resp 18 08/31/17 15:32 BP 104/54 08/31/17 15:32 Pulse Ox 95 08/31/17 15:32 Intake & Output 08/30/17 08/31/17 08/31/17 18:59 06:59 18:59 Intake Total 1000 Balance 1000 Intake: Oral 1000 Other: # Voids 3 # Bowel Movements 1 Active Medications: Current Medications Acetaminophen (Tylenol) 650 mg PO Q4HR PRN PRN Reason: Mild Pain / Temp above 100 Stop: 10/10/17 16:34 Last Admin: 08/30/17 21:26 Dose: 650 mg Al Hydrox/Mg Hydrox/Simethicone (Maalox) 30 ml PO Q4HR PRN PRN Reason: GI DISTRESS Stop: 10/10/17 16:34 Amlodipine Besylate (Norvasc) 5 mg PO DAILY TREMAINE Stop: 10/13/17 08:59 Last Admin: 08/31/17 09:45 Dose: 5 mg Atenolol (Tenormin) 100 mg PO DAILY TREMAINE Stop: 10/13/17 08:59 Last Admin: 08/31/17 09:46 Dose: 100 mg Baclofen (Lioresal) 20 mg PO TID PRN PRN Reason: Spasms Stop: 10/13/17 08:59 Last Admin: 08/29/17 14:34 Dose: 20 mg Cholecalciferol (Vitamin D3) 1,000 iu PO DAILY TREMAINE Stop: 10/13/17 08:59 Last Admin: 08/31/17 09:45 Dose: 1,000 iu Donepezil HCl (Aricept) 10 mg PO HS TREMAINE Stop: 10/13/17 20:59 Last Admin: 08/30/17 21:13 Dose: 10 mg Escitalopram Oxalate (Lexapro) 10 mg PO DAILY TREMAINE; Protocol Stop: 10/19/17 08:59 Last Admin: 08/31/17 09:45 Dose: 10 mg Levothyroxine Sodium (Synthroid) 0.1 mg PO QDAC TREMAINE Stop: 10/13/17 07:29 Last Admin: 08/31/17 06:32 Dose: 0.1 mg Magnesium Hydroxide (Milk Of Magnesia) 30 ml PO HS PRN PRN Reason: Constipation Memantine (Namenda) 10 mg PO BID TREMAINE Stop: 10/20/17 08:59 Last Admin: 08/31/17 09:45 Dose: 10 mg Multivitamins/Vitamin C (Theragran) 1 tab PO DAILY TREMAINE Stop: 10/11/17 08:59 Last Admin: 08/31/17 09:45 Dose: 1 tab Trazodone HCl (Desyrel) 75 mg PO HS TREMAINE; Protocol Stop: 10/11/17 20:59 Last Admin: 08/30/17 21:13 Dose: 75 mg General: demented HEENT: NC/AT, PERRLA, anicteric sclerae, throat clear Neck: +2 carotid pulse wo bruit, No LAD Cardiovascular: RRR, Normal S1, Normal S2, without murmur Abdomen: non-tender, distended Neurological: no change Internal Medicine Assmt/Plan - Assessment Assessment: 1.HTN. 2.HYPOTHYROIDISIM. 3.DEMENTIA. - Plan Plan: CONTINUE ON CURRENT MEDICATION AND DIET. Nutritional Asmnt/Malnutr-PDOC - Dietary Evaluation Malnutrition Findings (Please click <Entered> for more info): Nutritional Asmnt/Malnutrition Start: 08/15/17 14: 36 Text: Status: Complete Freq: Protocol: Document 08/15/17 14:36 [facility] (Rec: 08/15/17 14:43 [email or web address]) Nutritional Asmnt/Malnutrition Patient General Information Nutritional Screening Moderate Risk Diagnosis psychosis Pertinent Medical Hx/Surgical Hx HTn, hypothyroidism, chronic back pain, DJD, dementia Subjective Information Pt seen sitting up in bed at time of visit, CONTACT ACID PLANT OPERATOR helped to set up lunch tray. Pt reported good appetite. Per EMR, PO intake 75-100% of meals. Current Diet Order/ Nutrition Support regular Pertinent Medications vit D3, synthorid, theragran Pertinent Labs 08/15 K 3.4, Cr 0.5, glucose 108 Nutritional Hx/Data Height 1.52 m Height (Calculated Centimeters) 152.4 Current Weight (lbs) 48.081 kg Weight (Calculated Kilograms) 48.1 Weight (Calculated Grams) 26876.8 [place] Body Weight 100 Body Mass Index (BMI) 20.7 Weight Status Approriate GI Symptoms GI Symptoms None Last BM 08/13 Difficult in: None Skin Integrity/Comment: intact Current %PO Good (75-100%) Estimated Nutritional Goals BEE in Kcals: Using Current wt Calories/Kcals/Kg 25-30 Kcals Calculated 6985-3475 Protein: Using Current wt Protein g/k Protein Calculated 48 Fluid: ml 1200-1440ml (1ml/kcal) Nutritional Problem No current Nutrition Prob Problem N/A Malnutrition Alert Is there a minimum of two criteria No selected? Query Text:Check all the applicable criteria. A minimum of two criteria are recommended for diagnosis of either severe or non-severe malnutrition. Malnutrition Related to Morbid Obesity Malnutrition related to morbid obesity No Intervention/Recommendation Comments 1. Continue with regular diet as ordered. 2. Monitor PO intake, wt, labs and skin integrity 3. F/U as low risk in 7 days, 08/21 Expected Outcomes/Goals Expected Outcomes/Goals 1. PO intake to meet at least 75% of nutritional needs. 2. Wt stability, skin to remain intact, labs to approach WNL.
[2017-09-01] MEDS: Levothyroxine 0.1 Mg Tab PO SCH (06:49)
--- NOTE | 2017-09-01 07:33 | Progress Notes ---
DATE: 08/31/2017 SUBJECTIVE: A 76-year-old female admitted to the hospital, confused, agitated, does not know why she is here, "unable to ____". The patient noted to be highly disoriented with staff, wetting her bed; for example needing a higher level of nursing care, for example mostly in her room isolative and withdrawn. She slept fairly well last night. Unclear where she is going to go once she leaves the hospital. Currently considered gravely disabled, she cannot care for her basic needs for example. ASSESSMENT AND PLAN: The patient remains symptomatic, gravely disabled, needing a higher level of care, highly confused, unable to provide plan for basic food, clothing and senior care, certainly not able to carry it out. We will monitor and follow up. JOB# [id number]
[2017-09-01] MEDS: Atenolol 100mg Tab PO SCH (10:12)
[2017-09-01] MEDS: Multivitamin Tab PO SCH (10:13)
--- NOTE | 2017-09-01 17:54 | Internal Medicine Prog Note ---
Internal Medicine Subjective - Subjective Service Date: 09/01/17 Patient seen and examined:: with staff (SHE IS DOING WELL) Patient is:: awake, in bed, confused Per staff patient has:: no adverse event Internal Medicine Objective - Results Result Diagrams: 08/12/17 05:50 08/15/17 07:00 Recent Labs: Laboratory Last Values WBC 8.5 Th/cmm (4.8-10.8) 08/12/17 05:50 RBC 4.27 Mil/cmm (3.80-5.20) 08/12/17 05:50 Hgb 12.8 gm/dL (12-16) 08/12/17 05:50 Hct 37.3 % (41.0-60) L 08/12/17 05:50 MCV 87.4 fl (81-100) 08/12/17 05:50 MCH 30.0 pg (27.0-31.0) 08/12/17 05:50 MCHC Differential 34.3 pg (28.0-36.0) 08/12/17 05:50 RDW 13.9 % (11.5-20.0) 08/12/17 05:50 Plt Count 280 Th/cmm (150-400) 08/12/17 05:50 MPV 8.7 fl 08/12/17 05:50 Neutrophils % 70.5 % (40.0-80.0) 08/12/17 05:50 Lymphocytes % 18.4 % (20.0-50.0) L 08/12/17 05:50 Monocytes % 9.2 % (2.0-10.0) 08/12/17 05:50 Eosinophils % 1.3 % (0.0-5.0) 08/12/17 05:50 Basophils % 0.6 % (0.0-2.0) 08/12/17 05:50 Sodium 139 mEq/L (136-145) 08/15/17 07:00 Potassium 3.4 mEq/L (3.5-5.1) L 08/15/17 07:00 Chloride 104 mEq/L (98-107) 08/15/17 07:00 Carbon Dioxide 28.5 mEq/L (21.0-31.0) 08/15/17 07:00 Anion Gap 9.9 (7.0-16.0) 08/15/17 07:00 BUN 18 mg/dL (7-25) 08/15/17 07:00 Creatinine 0.5 mg/dL (0.6-1.2) L 08/15/17 07:00 Est GFR ( Amer) TNP 08/15/17 07:00 Est GFR (Non-Af Amer) TNP 08/15/17 07:00 BUN/Creatinine Ratio 36.0 08/15/17 07:00 Glucose 108 mg/dL (70-105) H 08/15/17 07:00 POC Glucose 92 MG/DL (70 - 105) 08/23/17 20:50 Calcium 8.7 mg/dL (8.6-10.3) 08/15/17 07:00 Total Bilirubin 0.4 mg/dL (0.3-1.0) 08/12/17 05:50 AST 24 U/L (13-39) 08/12/17 05:50 ALT 19 U/L (7-52) 08/12/17 05:50 Alkaline Phosphatase 50 U/L (34-104) 08/12/17 05:50 Total Protein 7.0 gm/dL (6.0-8.3) 08/12/17 05:50 Albumin 3.9 gm/dL (3.7-5.3) 08/12/17 05:50 Globulin 3.1 gm/dL 08/12/17 05:50 Albumin/Globulin Ratio 1.3 (1.0-1.8) 08/12/17 05:50 - Physical Exam Vitals and I&O: Vital Signs Temp 98.6 F 09/01/17 15:32 Pulse 63 09/01/17 15:32 Resp 19 09/01/17 15:32 BP 120/58 09/01/17 15:32 Pulse Ox 96 09/01/17 15:32 Intake & Output 08/31/17 09/01/17 09/01/17 18:59 06:59 18:59 Intake Total 1200 300 Balance 1200 300 Intake: Oral 1200 300 Other: # Voids 3 1 # Bowel Movements 1 0 Active Medications: Current Medications Acetaminophen (Tylenol) 650 mg PO Q4HR PRN PRN Reason: Mild Pain / Temp above 100 Stop: 10/10/17 16:34 Last Admin: 09/01/17 05:39 Dose: 650 mg Al Hydrox/Mg Hydrox/Simethicone (Maalox) 30 ml PO Q4HR PRN PRN Reason: GI DISTRESS Stop: 10/10/17 16:34 Amlodipine Besylate (Norvasc) 5 mg PO DAILY TREMAINE Stop: 10/13/17 08:59 Last Admin: 09/01/17 10:12 Dose: 5 mg Atenolol (Tenormin) 100 mg PO DAILY TREMAINE Stop: 10/13/17 08:59 Last Admin: 09/01/17 10:12 Dose: 100 mg Baclofen (Lioresal) 20 mg PO TID PRN PRN Reason: Spasms Stop: 10/13/17 08:59 Last Admin: 08/29/17 14:34 Dose: 20 mg Cholecalciferol (Vitamin D3) 1,000 iu PO DAILY TREMAINE Stop: 10/13/17 08:59 Last Admin: 09/01/17 10:13 Dose: 1,000 iu Donepezil HCl (Aricept) 10 mg PO HS TREMAINE Stop: 10/13/17 20:59 Last Admin: 08/31/17 20:59 Dose: 10 mg Escitalopram Oxalate (Lexapro) 10 mg PO DAILY TREMAINE; Protocol Stop: 10/19/17 08:59 Last Admin: 09/01/17 10:13 Dose: 10 mg Levothyroxine Sodium (Synthroid) 0.1 mg PO QDAC TREMAINE Stop: 10/13/17 07:29 Last Admin: 09/01/17 06:49 Dose: 0.1 mg Magnesium Hydroxide (Milk Of Magnesia) 30 ml PO HS PRN PRN Reason: Constipation Memantine (Namenda) 10 mg PO BID TREMAINE Stop: 10/20/17 08:59 Last Admin: 09/01/17 16:57 Dose: 10 mg Multivitamins/Vitamin C (Theragran) 1 tab PO DAILY TREMAINE Stop: 10/11/17 08:59 Last Admin: 09/01/17 10:13 Dose: 1 tab Trazodone HCl (Desyrel) 75 mg PO HS TREMAINE; Protocol Stop: 10/11/17 20:59 Last Admin: 08/31/17 20:59 Dose: 75 mg General: demented HEENT: NC/AT, PERRLA, anicteric sclerae, throat clear Neck: +2 carotid pulse wo bruit, No LAD Cardiovascular: RRR, Normal S1, Normal S2, without murmur Abdomen: non-tender, distended Neurological: no change Internal Medicine Assmt/Plan - Assessment Assessment: 1.HTN. 2.HYPOTHYROIDISIM. 3.DEMENTIA. - Plan Plan: CONTINUE ON CURRENT MEDICATION AND DIET. Nutritional Asmnt/Malnutr-PDOC - Dietary Evaluation Malnutrition Findings (Please click <Entered> for more info): Nutritional Asmnt/Malnutrition Start: 08/15/17 14: 36 Text: Status: Complete Freq: Protocol: Document 08/15/17 14:36 [facility] (Rec: 08/15/17 14:43 [email or web address]) Nutritional Asmnt/Malnutrition Patient General Information Nutritional Screening Moderate Risk Diagnosis psychosis Pertinent Medical Hx/Surgical Hx HTn, hypothyroidism, chronic back pain, DJD, dementia Subjective Information Pt seen sitting up in bed at time of visit, AUDIO VISUAL PRODUCTION SPECIALIST helped to set up lunch tray. Pt reported good appetite. Per EMR, PO intake 75-100% of meals. Current Diet Order/ Nutrition Support regular Pertinent Medications vit D3, synthorid, theragran Pertinent Labs 08/15 K 3.4, Cr 0.5, glucose 108 Nutritional Hx/Data Height 1.52 m Height (Calculated Centimeters) 152.4 Current Weight (lbs) 48.081 kg Weight (Calculated Kilograms) 48.1 Weight (Calculated Grams) 49059.8 [place] Body Weight 100 Body Mass Index (BMI) 20.7 Weight Status Approriate GI Symptoms GI Symptoms None Last BM 08/13 Difficult in: None Skin Integrity/Comment: intact Current %PO Good (75-100%) Estimated Nutritional Goals BEE in Kcals: Using Current wt Calories/Kcals/Kg 25-30 Kcals Calculated 8526-1597 Protein: Using Current wt Protein g/k Protein Calculated 48 Fluid: ml 1200-1440ml (1ml/kcal) Nutritional Problem No current Nutrition Prob Problem N/A Malnutrition Alert Is there a minimum of two criteria No selected? Query Text:Check all the applicable criteria. A minimum of two criteria are recommended for diagnosis of either severe or non-severe malnutrition. Malnutrition Related to Morbid Obesity Malnutrition related to morbid obesity No Intervention/Recommendation Comments 1. Continue with regular diet as ordered. 2. Monitor PO intake, wt, labs and skin integrity 3. F/U as low risk in 7 days, 08/21 Expected Outcomes/Goals Expected Outcomes/Goals 1. PO intake to meet at least 75% of nutritional needs. 2. Wt stability, skin to remain intact, labs to approach WNL.
--- NOTE | 2017-09-01 21:43 | Progress Notes ---
DATE: 09/01/2017 Case was discussed with staff of the patient, reviewed records. ____ continue to see her many times, covering for Dr. Thompson, continues to be ivan, irritable, disoriented, unable to make safe plan for self-care, isolating herself, withdrawn, continues to be unable to follow directions sometimes. No side effects with the medication, no sedation, no nausea and we will continue to work with the patient in group therapy, milieu therapy, adjust the medication as needed. JOB# [id number]
== END 2017-09-01 18:44 | DRG 885 ==
LOC: GERO 15:42
PROVIDERS: ADMIT Psychiatry & Neurology Psychiatry; ATTEND Psychiatry & Neurology Psychiatry
DX: F32.3 Major depressive disorder, single episode, severe with psychotic features (principal); F03.90 Unspecified dementia, unspecified severity, without behavioral disturbance, psychotic disturbance, mood disturbance, and anxiety; I10 Essential (primary) hypertension; E03.9 Hypothyroidism, unspecified; G89.29 Other chronic pain; M54.9 Dorsalgia, unspecified; M19.90 Unspecified osteoarthritis, unspecified site
CPT/HCPCS: 36415-UA; 71045-TC; 80048-TC; 80053-TC; 82948-90; 85025-TC; 93005; 97530; G0410; X3904; Z7610